=== PATIENT | female | born 1960 | race African-American/Black ===

== ENCOUNTER 2017-04-08 02:27 | Outpatient (CLI) | payer MEDICAID ==
[~2017-04-08 02:27] MED LIST: ATOR10TA87 PO; CARV-50 PO; HYDR-4069 PO; METF500T PO; NIFE90TA37 PO
== END 2017-04-08 23:59 | disposition home or self-care (01) ==
LOC: DIABETIC 02:27
PROVIDERS: ATTEND Family Medicine
DX: E11.22 Type 2 diabetes mellitus with diabetic chronic kidney disease (principal); I13.0 Hypertensive heart and chronic kidney disease with heart failure and stage 1 through stage 4 chronic kidney disease, or unspecified chronic kidney disease; N18.4 Chronic kidney disease, stage 4 (severe); I50.9 Heart failure, unspecified
CPT/HCPCS: G0108

== ENCOUNTER 2019-04-27 11:01 | Day surgery (SDC) | payer MEDICAID ==
[~2019-04-27] VITALS: Ht 167.6 cm; Wt 66.8 kg
[~2019-04-27 11:01] MED LIST changes: -NIFE90TA37 PO; +NIFE90TA61 PO
[2019-04-27 11:31] VITALS: BP 121/89
[2019-04-27] MEDS ORDERED: VALS1TAB76 PO (12:06)
[2019-04-27] MEDS ORDERED: FA/V1TAB PO (12:06)
[2019-04-27] MEDS ORDERED: MULT-955 PO (12:06)
[2019-04-27] MEDS ORDERED: FURO80TA3 PO (12:06)
[2019-04-27] MEDS ORDERED: fentaNYL/PF 50MCG/1 ML 2ML syringe IV PRN (13:35)
[2019-04-27] MEDS ORDERED: heparin 1,000 units/ml 10ml inj ICATH ONE (13:35)
[2019-04-27] MEDS ORDERED: LIDOcaine 1% (10mg/ml) 2ml vial SQ ONE (13:35)
[2019-04-27] MEDS ORDERED: heparin 1,000unit/ml 10ml vial 10 ML ONE (13:41)
[2019-04-27] MEDS ORDERED: fentaNYL/PF 50MCG/1 ML 2ML syringe ONE (13:41)
[2019-04-27] MEDS ORDERED: LIDOcaine 1%/PF 5ML 10 MG/ML VIAL ONE (13:58)
[2019-04-27] MEDS ORDERED: midazolam 2 mg/2 ml injection ONE (14:12)
[2019-04-27 14:42] VITALS: BP 117/85
[2019-04-27 14:57] VITALS: BP 105/84
[2019-04-27 15:12] VITALS: BP 96/69
[2019-04-27 15:27] VITALS: BP 100/74
== END 2019-04-27 16:05 | disposition home or self-care (01) ==
LOC: SSTAY O 11:01
PROVIDERS: ATTEND Radiology Diagnostic Radiology
DX: T82.49XA Other complication of vascular dialysis catheter, initial encounter (principal); Z88.5 Allergy status to narcotic agent; Z88.8 Allergy status to other drugs, medicaments and biological substances; Z79.899 Other long term (current) drug therapy; Y83.8 Other surgical procedures as the cause of abnormal reaction of the patient, or of later complication, without mention of misadventure at the time of the procedure; Y92.89 Other specified places as the place of occurrence of the external cause
CPT/HCPCS: 36581; 77001; 99152; 99153; C1750; C1769; J1644; J2250; J3010; A9270

== ENCOUNTER 2019-05-20 08:59 | Day surgery (SDC) | payer MEDICARE, MEDICAID ==
[~2019-05-20] VITALS: Ht 162.6 cm; Wt 68.2 kg
[~2019-05-20 08:59] MED LIST changes: -ATOR10TA87 PO; -CARV-50 PO; +FA/V1TAB PO; +FURO80TA3 PO; -HYDR-4069 PO; -METF500T PO; +MULT-955 PO; -NIFE90TA61 PO; +VALS1TAB76 PO
[2019-05-20 09:06] VITALS: BP 122/90
[2019-05-20] MEDS ORDERED: fentaNYL/PF 50MCG/1 ML 2ML syringe ONE (09:06)
[2019-05-20] MEDS ORDERED: MIDAZolam 5mg/5ml vial ONE (09:06)
[2019-05-20] MEDS ORDERED: LIDOcaine Viscous 15ml cup ONE (09:06)
[2019-05-20 09:52] VITALS: BP 119/64
[2019-05-20 10:02] VITALS: BP 104/75
[2019-05-20 10:12] VITALS: BP 114/72
[2019-05-20 10:22] VITALS: BP 118/84
== END 2019-05-20 10:35 | disposition home or self-care (01) ==
LOC: GI LAB 08:59
PROVIDERS: ATTEND Internal Medicine Gastroenterology
DX: R11.2 Nausea with vomiting, unspecified (principal); K44.9 Diaphragmatic hernia without obstruction or gangrene; K31.7 Polyp of stomach and duodenum; K29.50 Unspecified chronic gastritis without bleeding; Z90.49 Acquired absence of other specified parts of digestive tract
CPT/HCPCS: 43239; G0500; J2250; J3010; J7040; 99152; A4620

== ENCOUNTER 2020-10-17 05:56 | Day surgery (SDC) | payer MEDICARE, MEDICAID ==
[~2020-10-17] VITALS: Ht 167.6 cm; Wt 71.4 kg
[2020-10-17] MEDS ORDERED: albumin 25% 100mL bottle x 1 IV PRN (06:20)
[2020-10-17 06:22] VITALS: BP 146/94
[2020-10-17] MEDS ORDERED: CARV3.12 PO (06:55)
[2020-10-17] MEDS ORDERED: ALBU18HF2 INH (06:55)
[2020-10-17] MEDS ORDERED: CINA60TA4 (06:55)
[2020-10-17] MEDS ORDERED: [UNRECOGNIZED DRUG - CODE] (06:55)
[2020-10-17] MEDS ORDERED: B COMPLEX FOLIC ACID (06:55)
[2020-10-17] MEDS ORDERED: B COMPLEX (06:55)
[2020-10-17] MEDS ORDERED: OMEG1CAP2 (06:55)
[2020-10-17 08:40] VITALS: BP 144/103
[2020-10-17 08:45] VITALS: BP 149/99
[2020-10-17 09:00] VITALS: BP 140/101
[2020-10-17 09:15] VITALS: BP 141/100
[2020-10-17 09:25] VITALS: BP 133/88
== END 2020-10-17 09:30 | disposition home or self-care (01) ==
LOC: SSTAY O 05:56
PROVIDERS: ATTEND Radiology Vascular & Interventional Radiology
DX: R18.8 Other ascites (principal); R14.0 Abdominal distension (gaseous); K74.60 Unspecified cirrhosis of liver; N18.6 End stage renal disease; Z99.2 Dependence on renal dialysis; Z90.49 Acquired absence of other specified parts of digestive tract; Z79.899 Other long term (current) drug therapy
CPT/HCPCS: 49083

== ENCOUNTER → 2020-11-19 | Emergency (ER) | payer MEDICARE, MEDICAID ==
[~2020-11-19] VITALS: Ht 167.6 cm; Wt 68.2 kg
[~2020-11-19] MED LIST changes: +ALBU18HF2 INH; +B COMPLEX; +B COMPLEX FOLIC ACID; +CARV3.12 PO; +CINA60TA4; -FA/V1TAB PO; -FURO80TA3 PO; -MULT-955 PO; +OMEG1CAP2; -VALS1TAB76 PO; +[UNRECOGNIZED DRUG - CODE]
[2020-11-19 23:22] VITALS: BP 141/86
== END | disposition left against medical advice (07) ==
LOC: ER 23:20
DX: R11.0 Nausea (principal); Z53.21 Procedure and treatment not carried out due to patient leaving prior to being seen by health care provider

== ENCOUNTER 2020-12-15 07:36 | Day surgery (SDC) | payer MEDICARE, MEDICAID ==
[~2020-12-15] VITALS: Ht 167.6 cm; Wt 71.7 kg
[2020-12-15] MEDS ORDERED: CBD PO (08:15)
[2020-12-15] MEDS ORDERED: CBD gummies PO (08:15)
[2020-12-15] MEDS ORDERED: albumin 25% 100mL bottle x 1 IV PRN (08:15)
[2020-12-15 08:31] VITALS: BP 110/74
== END 2020-12-15 10:00 | disposition home or self-care (01) ==
LOC: SSTAY O 07:36
PROVIDERS: ATTEND Radiology Vascular & Interventional Radiology
DX: R18.8 Other ascites (principal); R14.0 Abdominal distension (gaseous); K74.60 Unspecified cirrhosis of liver; N18.6 End stage renal disease; N26.1 Atrophy of kidney (terminal); Z99.2 Dependence on renal dialysis; Z90.49 Acquired absence of other specified parts of digestive tract; Z88.5 Allergy status to narcotic agent; Z88.8 Allergy status to other drugs, medicaments and biological substances; Z79.899 Other long term (current) drug therapy
CPT/HCPCS: 76705

== ENCOUNTER 2021-01-11 10:55 | Inpatient (IN) | payer MEDICARE, MEDICAID ==
[~2021-01-11] VITALS: Ht 167.6 cm; Wt 75.0 kg
[2021-01-11] MEDS: fluconazole 100mg tablet PO SCH (00:04)
[~2021-01-11 10:55] MED LIST changes: -B COMPLEX FOLIC ACID; +CBD PO; +CBD gummies PO; -CINA60TA4
--- NOTE | 2021-01-11 13:30 | NUR ---
PATIENT AGITATED, CONFUSED, STAFF IS UNABLE TO PERFORM LAB DRAW OR CT SCAN. MD AWARE ORDERS RECEIVED.
[2021-01-11] MEDS ORDERED: haloperidol lactate 5mg/ml inj IM ONE ×2 (13:45→16:50)
--- NOTE | 2021-01-11 14:30 | NUR ---
PATIENT NOW CALM, ORDERED PROCEDURES PERFORMED
[2021-01-11 14:58] LABS: BASOPHILS # (AUTO) 0.1 X10'3 (0-0.2); BASOPHILS % (AUTO) 0.8 % (0-1); EOSINOPHILS % (AUTO) 0.6 % (0-6); HEMATOCRIT 32.3 % (35.0-45.0); HEMOGLOBIN 10.5 g/dl (12.0-16.0); LYMPHOCYTES # (AUTO) 0.6 X10'3 (1.1-4.8); LYMPHOCYTES % (AUTO) 8.1 % (21-51); MEAN CORPUSCULAR HGB CONC 32.7 g/dL (33.0-36.5); MEAN CORPUSCULAR VOLUME 95.1 FL (78-98); MEAN PLATELET VOLUME 9.2 FL (7.4-10.4); MONOCYTES # (AUTO) 0.6 X10'3 (0-0.9); MONOCYTES % (AUTO) 8.4 % (2-12); NEUTROPHILS # (AUTO) 6.3 X10'3 (1.8-7.7); NEUTROPHILS % (AUTO) 82.1 % (42-75); PLATELET COUNT 248 X10'3 (140-440); RED CELL DISTRIBUTION WIDTH 20.7 % (11.5-14.5); WHITE BLOOD COUNT 7.7 X10'3 (4.5-11.0)
[2021-01-11 15:07] LABS: PARTIAL THROMBOPLASTIN TIME 30 SECONDS (22-32)
[2021-01-11 15:21] LABS: ANISOCYTOSIS 3+; PLATELET ESTIMATE NORMAL; SCHISTOCYTES FEW; TARGET CELLS FEW
[2021-01-11 15:22] LABS: LARGE PLATELETS FEW
[2021-01-11 15:36] LABS: ALANINE AMINOTRANSFERASE 12 U/L (12-78); ALBUMIN 2.7 G/DL (3.4-5.0); ALBUMIN/GLOBULIN RATIO 0.5 (1.1-1.5); ANION GAP 13 (8-16); ASPARTATE AMINO TRANSFERASE 20 U/L (10-37); BILIRUBIN,DIRECT 0.5 MG/DL (0-0.3); BILIRUBIN,TOTAL 1.1 MG/DL (0.1-1.0); BLOOD UREA NITROGEN 36 MG/DL (7-18); BUN/CREATININE RATIO 5.3 (6.6-38.0); CALCIUM 9.2 MG/DL (8.5-10.1); CHLORIDE 101 MMOL/L (99-107); CREATININE 6.77 MG/DL (0.40-0.90); GLUCOSE 61 MG/DL (70-104); LIPASE < 50 U/L (73-393); POTASSIUM 4.2 MMOL/L (3.5-5.1); SODIUM 140 MMOL/L (135-145); TOTAL PROTEIN 8.7 G/DL (6.4-8.2); eGFR 8 ML/MIN
--- NOTE | 2021-01-11 16:30 | NUR ---
PATIENT AGITATED AND STRUCK MYSELF AND OTHER NURSING STAFF WHILE CLEANING STOOL. PATIENT ALSO SPITTING RANDOMLY AND REFUSES TO KEEP MASK ON. DR CHAUHAN, ORDERS RECEIVED.
[2021-01-11 16:38] LABS: ALKALINE PHOSPHATASE 108 IU/L (46-116)
[2021-01-11] MEDS ORDERED: potassium Cl 20 mEq SR tablet PO PRN ×2 (16:50)
[2021-01-11] MEDS ORDERED: PERFLUTREN PROTEIN-A MICROSPHR (Optison) 0.22 MG/ML 3ML VIAL IV PRN (16:50)
[2021-01-11] MEDS ORDERED: acetaminophen 325mg tablet PO PRN ×2 (16:50)
[2021-01-11] MEDS ORDERED: OMEP-50 PO (16:50)
[2021-01-11] MEDS ORDERED: diphenhydrAMINE 25mg capsule PO PRN (16:50)
[2021-01-11] MEDS ORDERED: ALPR-149 PO (16:50)
[2021-01-11] MEDS ORDERED: potassium Cl 40MEQ/1/2NS 520ml 520 ML IV PRN ×2 (16:50)
[2021-01-11] MEDS ORDERED: KETO15CR2 TOP (16:50)
[2021-01-11] MEDS ORDERED: mag hydrox/Alum hydrox/simeth 30ml oral suspension PO PRN (16:50)
[2021-01-11] MEDS ORDERED: magnesium 4gm in 100ml NS 100 ML IV PRN (16:50)
[2021-01-11] MEDS ORDERED: acetaminophen 650mg rectal suppository RC PRN (16:50)
[2021-01-11] MEDS ORDERED: magnesium Cl slow-release 64mg tablet PO PRN (16:50)
[2021-01-11] MEDS ORDERED: magnesium 2GM in 50ml NS 50 ML IV PRN (16:50)
[2021-01-11] MEDS ORDERED: FLUC200T9 PO (16:50)
[2021-01-11] MEDS ORDERED: ONDA4TAB12 SL (16:50)
[2021-01-11] MEDS ORDERED: magnesium hydroxide 30ml (MOM) UD suspension PO PRN (16:50)
[2021-01-11] MEDS ORDERED: bisacodyl 10mg suppository rectal RC PRN (16:50)
[2021-01-11] MEDS ORDERED: QUET25TA36 PO (16:50)
[2021-01-11] MEDS ORDERED: ALBU18HF2 INH (16:56)
[2021-01-11] MEDS ORDERED: CARV3.12 PO (16:56)
[2021-01-11] MEDS ORDERED: albuterol 2.5 MG/3 ML nebule NEB PRN (17:05)
[2021-01-11] MEDS ORDERED: ondansetron 4mg rapidly disintigrating tab PO PRN (17:05)
--- NOTE | 2021-01-11 17:37 | NUR ---
Franc magaña in ED - 01/11/21 at 1742 by TUAN PATIENT AGITATED, CONFUSED, STAFF IS UNABLE TO PERFORM LAB DRAW OR CT SCAN. AWARE ORDERS RECEIVED.
[2021-01-11 17:55] LABS: CHOLESTEROL 136 MG/DL (0-200); HDL CHOLESTEROL 46 MG/DL (35-60); LDL CHOLESTEROL 76 MG/DL (50-100); TRIGLYCERIDES 79 MG/DL (20-135)
[2021-01-11 18:05] LABS: HEMOGLOBIN A1C 4.5 % (4.5-6.2)
[2021-01-11] MEDS: K and/or MAG REPLACEMENT MC SCH (20:00)
[2021-01-11] MEDS: docusate sod 100mg capsule PO SCH (20:00)
[2021-01-12] VITALS (8 sets, daily range): BP systolic 113–152; BP diastolic 77–100
[2021-01-12] MEDS: carVEDilol 3.125mg tablet PO SCH ×3 (00:04→20:34)
[2021-01-12] MEDS: pantoprazole 40mg Tablet.DR PO SCH ×3 (00:04→20:34)
[2021-01-12] MEDS: QUEtiapine 25mg tablet PO SCH ×2 (00:04→21:00)
[2021-01-12] MEDS: ketoconazole 2% cream 15gm TP SCH ×3 (00:04→20:00)
[2021-01-12] MEDS: normal saline 1000ml 1,000 ML IV SCH ×4 (00:05→22:35)
[2021-01-12] MEDS: heparin, porcine 5000 units/ml vial SQ SCH ×3 (00:08→20:35)
--- NOTE | 2021-01-12 02:49 | NUR ---
Alert and responsive, very disoriented newly admitted patient. Patient admitted for altered mental status. Patient on admission to the floor was confused, agitated, and combative, and with spitting episodes at times. Patient refused all night medications, and is unable to be redirected. Patient has ESRD, and on hemodialysis, with dialysis cath to right subclavian. Patient maintained on bilateral soft wrist restraints; assessed q two hours for circulation. Patient is presently asleep.
[2021-01-12] MEDS ORDERED: haloperidol lactate 5mg/ml inj IM ONE (03:10)
[2021-01-12 06:34] LABS: BASOPHILS % (AUTO) 0.6 % (0-1); EOSINOPHILS % (AUTO) 0.3 % (0-6); HEMATOCRIT 28.1 % (35.0-45.0); HEMOGLOBIN 9.2 g/dl (12.0-16.0); LYMPHOCYTES # (AUTO) 0.4 X10'3 (1.1-4.8); LYMPHOCYTES % (AUTO) 5.8 % (21-51); MEAN CORPUSCULAR HEMOGLOBIN 31.2 PG (27.0-31.0); MEAN CORPUSCULAR HGB CONC 32.6 g/dL (33.0-36.5); MEAN CORPUSCULAR VOLUME 95.6 FL (78-98); MEAN PLATELET VOLUME 9.5 FL (7.4-10.4); MONOCYTES # (AUTO) 0.5 X10'3 (0-0.9); MONOCYTES % (AUTO) 8.5 % (2-12); NEUTROPHILS # (AUTO) 5.4 X10'3 (1.8-7.7); NEUTROPHILS % (AUTO) 84.8 % (42-75); PLATELET COUNT 203 X10'3 (140-440); RED BLOOD COUNT 2.94 X10'6 (4.20-5.60); RED CELL DISTRIBUTION WIDTH 21.5 % (11.5-14.5); WHITE BLOOD COUNT 6.4 X10'3 (4.5-11.0)
[2021-01-12 07:11] LABS: ALANINE AMINOTRANSFERASE 11 U/L (12-78); ALBUMIN 2.2 G/DL (3.4-5.0); ALBUMIN/GLOBULIN RATIO 0.4 (1.1-1.5); ALKALINE PHOSPHATASE 91 IU/L (46-116); ANION GAP 17 (8-16); ASPARTATE AMINO TRANSFERASE 16 U/L (10-37); BLOOD UREA NITROGEN 41 MG/DL (7-18); BUN/CREATININE RATIO 5.7 (6.6-38.0); CALCIUM 8.6 MG/DL (8.5-10.1); CHLORIDE 104 MMOL/L (99-107); CREATININE 7.22 MG/DL (0.40-0.90); POTASSIUM 4.2 MMOL/L (3.5-5.1); SODIUM 142 MMOL/L (135-145); TOTAL CARBON DIOXIDE 20.9 MMOL/L (24-32); TOTAL PROTEIN 7.3 G/DL (6.4-8.2); eGFR 7 ML/MIN
[2021-01-12 07:12] LABS: CHOLESTEROL 111 MG/DL (0-200); HDL CHOLESTEROL 37 MG/DL (35-60); LDL CHOLESTEROL 62 MG/DL (50-100); MAGNESIUM 2.4 MG/DL (1.5-2.4); PHOSPHORUS 6.6 MG/DL (2.3-4.5); TRIGLYCERIDES 67 MG/DL (20-135)
[2021-01-12 07:17] LABS: GLUCOSE 50 MG/DL (70-104)
[2021-01-12 07:25] LABS: ANISOCYTOSIS 3+; LARGE PLATELETS FEW; PLATELET ESTIMATE NORMAL; SCHISTOCYTES FEW
[2021-01-12 07:26] LABS: POLYCHROMASIA 1+; TARGET CELLS FEW
[2021-01-12] MEDS ORDERED: heparin 1,000 units/ml 10ml inj IV ONE (07:45)
[2021-01-12] MEDS ORDERED: heparin 1,000unit/ml 10ml vial 10 ML IV ONE (07:45)
[2021-01-12] MEDS ORDERED: albumin (human) 25% 100ml IV 100 ML IV PRN (07:45)
[2021-01-12] MEDS ORDERED: EPOETIN ALFA-EPBX 20,000 UNIT/ML 1 ML MDV IV ONE (07:45)
[2021-01-12] MEDS ORDERED: heparin 1,000 units/ml 10ml inj HE ONE ×2 (07:50)
[2021-01-12] MEDS: K and/or MAG REPLACEMENT MC SCH ×2 (08:00→20:00)
--- NOTE | 2021-01-12 08:07 | NUR ---
Dr. Meyer was paged about the patient low blood sugar level , patient 14B PCU glucose level is 50 blood sugar accu check is 44. lupe NEFF [phone]
--- NOTE | 2021-01-12 08:28 | NUR ---
Dr. Meyer was paged again about the patient low sugar and recommendation treatment can patient ADAM MARIE, room 14 B in PCU have an IV dextrose order, her blood sugar is 44 . INDERJIT NEFF [phone]
[2021-01-12] MEDS ORDERED: dextrose 50%-water 50ml dispensing syringe IV ONE (08:30)
[2021-01-12] MEDS: levoTHYROXINE 25mcg tablet PO SCH (11:48)
[2021-01-12] MEDS: aspirin 81mg, enteric-coated 1 TAB TABLET.DR PO SCH (11:48)
[2021-01-12] MEDS: docusate sod 100mg capsule PO SCH ×2 (11:48→20:34)
[2021-01-12] MEDS: atorvastatin 10mg tablet PO SCH (11:49)
[2021-01-12] MEDS: fluconazole 100mg tablet PO SCH (12:04)
[2021-01-12] MEDS: dextrose 5%-normal saline 1,000 ML IV SCH (23:10)
[2021-01-12] MEDS: ALPRAZolam 0.25mg tablet PO PRN (23:49)
[2021-01-13 06:00] VITALS: BP 114/75
[2021-01-13 06:03] LABS: ALANINE AMINOTRANSFERASE 8 U/L (12-78); ALBUMIN 2.2 G/DL (3.4-5.0); ALBUMIN/GLOBULIN RATIO 0.4 (1.1-1.5); ALKALINE PHOSPHATASE 96 IU/L (46-116); ANION GAP 12 (8-16); ASPARTATE AMINO TRANSFERASE 17 U/L (10-37); BILIRUBIN,TOTAL 1.1 MG/DL (0.1-1.0); BLOOD UREA NITROGEN 22 MG/DL (7-18); BUN/CREATININE RATIO 4.6 (6.6-38.0); CALCIUM 8.6 MG/DL (8.5-10.1); CHLORIDE 101 MMOL/L (99-107); CREATININE 4.77 MG/DL (0.40-0.90); GLUCOSE 53 MG/DL (70-104); MAGNESIUM 2.4 MG/DL (1.5-2.4); PHOSPHORUS 5.1 MG/DL (2.3-4.5); SODIUM 138 MMOL/L (135-145); TOTAL CARBON DIOXIDE 25.4 MMOL/L (24-32); TOTAL PROTEIN 7.5 G/DL (6.4-8.2); eGFR 11 ML/MIN
[2021-01-13 06:17] LABS: BASOPHILS % (AUTO) 0.9 % (0-1); EOSINOPHILS % (AUTO) 0.9 % (0-6); HEMATOCRIT 30.1 % (35.0-45.0); HEMOGLOBIN 9.8 g/dl (12.0-16.0); LYMPHOCYTES # (AUTO) 0.5 X10'3 (1.1-4.8); LYMPHOCYTES % (AUTO) 10.5 % (21-51); MEAN CORPUSCULAR HEMOGLOBIN 31.4 PG (27.0-31.0); MEAN CORPUSCULAR HGB CONC 32.6 g/dL (33.0-36.5); MEAN CORPUSCULAR VOLUME 96.4 FL (78-98); MEAN PLATELET VOLUME 9.2 FL (7.4-10.4); MONOCYTES # (AUTO) 0.4 X10'3 (0-0.9); MONOCYTES % (AUTO) 7.9 % (2-12); NEUTROPHILS # (AUTO) 3.8 X10'3 (1.8-7.7); NEUTROPHILS % (AUTO) 79.8 % (42-75); PLATELET COUNT 209 X10'3 (140-440); RED BLOOD COUNT 3.12 X10'6 (4.20-5.60); WHITE BLOOD COUNT 4.7 X10'3 (4.5-11.0)
[2021-01-13] MEDS: levoTHYROXINE 25mcg tablet PO SCH (07:56)
[2021-01-13] MEDS: fluconazole 100mg tablet PO SCH (07:57)
[2021-01-13] MEDS: carVEDilol 3.125mg tablet PO SCH ×2 (07:57→20:09)
[2021-01-13] MEDS: aspirin 81mg, enteric-coated 1 TAB TABLET.DR PO SCH (07:57)
[2021-01-13] MEDS: docusate sod 100mg capsule PO SCH ×2 (07:57→20:00)
[2021-01-13] MEDS: heparin, porcine 5000 units/ml vial SQ SCH ×2 (07:57→20:13)
[2021-01-13] MEDS: atorvastatin 10mg tablet PO SCH (07:57)
[2021-01-13] MEDS: pantoprazole 40mg Tablet.DR PO SCH ×2 (07:57→20:10)
[2021-01-13] MEDS: ketoconazole 2% cream 15gm TP SCH ×2 (07:57→20:00)
[2021-01-13] MEDS: K and/or MAG REPLACEMENT MC SCH ×2 (08:00→20:00)
[2021-01-13 11:00] VITALS: BP 112/79
[2021-01-13 11:48] LABS: ANISOCYTOSIS 3+; PLATELET ESTIMATE NORMAL
[2021-01-13 11:49] LABS: BURR CELLS FEW; POLYCHROMASIA FEW; SCHISTOCYTES FEW
[2021-01-13 11:50] LABS: LARGE PLATELETS FEW; TARGET CELLS FEW
--- NOTE | 2021-01-13 14:44 | NUR ---
Paged Dr. MURILLO patient in PCU room 14 B , has not pass urine for two days, i believe she is anuric, lupe NEFF [phone]
[2021-01-13 15:00] VITALS: BP 119/80
[2021-01-13 19:00] VITALS: BP 113/76
[2021-01-13 19:04] LABS: CLARITY,URINE CLOUDY (Clear); COLOR,URINE YELLOW (Yellow)
[2021-01-13 19:06] LABS: GLUCOSE, URINE NEGATIVE (Neg); KETONES,URINE NEGATIVE (Neg); NITRITES, URINE NEGATIVE (Neg); OCCULT BLOOD,URINE NEGATIVE (Neg); PROTEIN,URINE 300 mg/dl (Neg); UROBILINOGEN,URINE 0.2 E.U/dL (0.2-1.0)
[2021-01-13 19:07] LABS: LEUKOCYTE ESTERASE ,URINE NEGATIVE (Neg)
[2021-01-13 19:08] LABS: URINE AMPHETAMINE SCREEN NEGATIVE (Neg); URINE BARBITUATE SCREEN NEGATIVE (Neg); URINE BENZODIAZEPINES SCREEN NEGATIVE (Neg); URINE CANNABINOID SCREEN POSITIVE (Neg); URINE COCAINE SCREEN NEGATIVE (Neg); URINE METHADONE SCREEN NEGATIVE (Neg); URINE OPIATE SCREEN NEGATIVE (Neg); URINE PHENCYCLIDINE SCREEN NEGATIVE (Neg)
[2021-01-13 19:18] LABS: BACTERIA,URINE 2+ /HPF (Neg); MUCUS STRANDS NONE SEEN /LPF (Neg); RBC,URINE NONE SEEN /HPF (0-2); SQUAMOUS EPITHELIAL CELL,UR MANY /LPF (FEW); YEAST MODERATE /HPF (NEGATIVE)
[2021-01-13] MEDS: dextrose 5%-normal saline 1,000 ML IV SCH (19:26)
[2021-01-13] MEDS: traZODone 50mg tablet PO SCH (20:11)
[2021-01-13] MEDS: risperiDONE 0.5mg tablet PO SCH (20:11)
[2021-01-13 22:00] VITALS: BP 113/76
[2021-01-13] MEDS: ALPRAZolam 0.25mg tablet PO PRN (23:27)
[2021-01-14] MEDS: dextrose 5%-normal saline 1,000 ML IV SCH ×2 (01:47→07:01)
--- NOTE | 2021-01-14 03:58 | NUR ---
reviewed and edited assessment from SRN.
[2021-01-14 06:00] VITALS: BP 114/77
--- NOTE | 2021-01-14 06:00 | NUR ---
Patient in room PCU 3014. I have received report from Shira NEFF and had the opportunity to ask questions and assume patient care.
[2021-01-14 06:15] LABS: BASOPHILS # (AUTO) 0.1 X10'3 (0-0.2); BASOPHILS % (AUTO) 1.5 % (0-1); EOSINOPHILS # (AUTO) 0.1 X10'3 (0-0.9); HEMATOCRIT 29.6 % (35.0-45.0); HEMOGLOBIN 9.8 g/dl (12.0-16.0); LYMPHOCYTES # (AUTO) 0.5 X10'3 (1.1-4.8); LYMPHOCYTES % (AUTO) 11.8 % (21-51); MEAN CORPUSCULAR HEMOGLOBIN 31.5 PG (27.0-31.0); MEAN CORPUSCULAR HGB CONC 33.1 g/dL (33.0-36.5); MEAN PLATELET VOLUME 9.2 FL (7.4-10.4); MONOCYTES # (AUTO) 0.5 X10'3 (0-0.9); MONOCYTES % (AUTO) 10.3 % (2-12); NEUTROPHILS # (AUTO) 3.3 X10'3 (1.8-7.7); NEUTROPHILS % (AUTO) 73.4 % (42-75); PLATELET COUNT 221 X10'3 (140-440); RED BLOOD COUNT 3.11 X10'6 (4.20-5.60); RED CELL DISTRIBUTION WIDTH 21.3 % (11.5-14.5); WHITE BLOOD COUNT 4.5 X10'3 (4.5-11.0)
[2021-01-14 06:23] LABS: ALANINE AMINOTRANSFERASE 6 U/L (12-78); ALBUMIN 2.2 G/DL (3.4-5.0); ALBUMIN/GLOBULIN RATIO 0.4 (1.1-1.5); ALKALINE PHOSPHATASE 91 IU/L (46-116); ANION GAP 10 (8-16); ASPARTATE AMINO TRANSFERASE 15 U/L (10-37); BILIRUBIN,TOTAL 0.9 MG/DL (0.1-1.0); BLOOD UREA NITROGEN 26 MG/DL (7-18); BUN/CREATININE RATIO 4.4 (6.6-38.0); CALCIUM 8.4 MG/DL (8.5-10.1); CHLORIDE 99 MMOL/L (99-107); CREATININE 5.85 MG/DL (0.40-0.90); MAGNESIUM 2.3 MG/DL (1.5-2.4); PHOSPHORUS 5.6 MG/DL (2.3-4.5); POTASSIUM 4.4 MMOL/L (3.5-5.1); SODIUM 133 MMOL/L (135-145); TOTAL CARBON DIOXIDE 24.5 MMOL/L (24-32); TOTAL PROTEIN 7.8 G/DL (6.4-8.2); eGFR 9 ML/MIN
[2021-01-14 06:29] LABS: GLUCOSE 44 MG/DL (70-104)
--- NOTE | 2021-01-14 06:35 | NUR ---
Called Dr. Madsen re blood glucose of 44
[2021-01-14] MEDS: K and/or MAG REPLACEMENT MC SCH ×2 (08:00→20:00)
[2021-01-14] MEDS ORDERED: dextrose ORAL solution 15 GM/59 ML bottle PO ONE (08:15)
[2021-01-14] MEDS: docusate sod 100mg capsule PO SCH ×2 (08:17→20:00)
[2021-01-14] MEDS: aspirin 81mg, enteric-coated 1 TAB TABLET.DR PO SCH (08:17)
[2021-01-14] MEDS: carVEDilol 3.125mg tablet PO SCH ×2 (08:17→20:26)
[2021-01-14] MEDS: atorvastatin 10mg tablet PO SCH (08:17)
[2021-01-14] MEDS: risperiDONE 0.5mg tablet PO SCH ×2 (08:18→20:26)
[2021-01-14] MEDS: pantoprazole 40mg Tablet.DR PO SCH ×2 (08:18→20:26)
[2021-01-14] MEDS: levoTHYROXINE 25mcg tablet PO SCH (08:18)
[2021-01-14] MEDS: fluconazole 100mg tablet PO SCH (08:19)
[2021-01-14] MEDS: ketoconazole 2% cream 15gm TP SCH ×2 (08:20→20:00)
[2021-01-14] MEDS: heparin, porcine 5000 units/ml vial SQ SCH ×2 (08:20→20:27)
[2021-01-14 11:00] VITALS: BP 124/80
[2021-01-14] MEDS: CefTRIAXone/D5W-Rocephin 1gm 50 ML IV SCH (12:05)
[2021-01-14 15:00] VITALS: BP 117/82
[2021-01-14 17:55] LABS: UA COLLECTION TYPE STRAIGHT CATH
[2021-01-14 18:00] VITALS: BP 117/83
--- NOTE | 2021-01-14 18:14 | NUR ---
Problems reprioritized. Patient report given, questions answered & plan of care reviewed with Shira NEFF.
[2021-01-14] MEDS: traZODone 50mg tablet PO SCH (20:26)
[2021-01-14 22:00] VITALS: BP 118/92
[2021-01-15 02:00] VITALS: BP 114/83
--- NOTE | 2021-01-15 04:31 | NUR ---
reviewed and agree with SRN assessment findings
[2021-01-15 06:00] VITALS: BP 112/80
[2021-01-15 06:30] LABS: BASOPHILS % (AUTO) 0.7 % (0-1); EOSINOPHILS # (AUTO) 0.1 X10'3 (0-0.9); EOSINOPHILS % (AUTO) 2.1 % (0-6); HEMATOCRIT 29.3 % (35.0-45.0); HEMOGLOBIN 9.7 g/dl (12.0-16.0); LYMPHOCYTES # (AUTO) 0.5 X10'3 (1.1-4.8); LYMPHOCYTES % (AUTO) 7.8 % (21-51); MEAN CORPUSCULAR HEMOGLOBIN 31.6 PG (27.0-31.0); MEAN CORPUSCULAR HGB CONC 33.2 g/dL (33.0-36.5); MEAN CORPUSCULAR VOLUME 95.4 FL (78-98); MEAN PLATELET VOLUME 9.1 FL (7.4-10.4); MONOCYTES # (AUTO) 0.6 X10'3 (0-0.9); MONOCYTES % (AUTO) 8.4 % (2-12); NEUTROPHILS # (AUTO) 5.4 X10'3 (1.8-7.7); PLATELET COUNT 216 X10'3 (140-440); RED BLOOD COUNT 3.07 X10'6 (4.20-5.60); WHITE BLOOD COUNT 6.7 X10'3 (4.5-11.0)
--- NOTE | 2021-01-15 06:33 | NUR ---
Patient in room PCU 3014. I have received report from Shira NEFF and had the opportunity to ask questions and assume patient care.
[2021-01-15 07:21] LABS: ALANINE AMINOTRANSFERASE 9 U/L (12-78); ALBUMIN 2.3 G/DL (3.4-5.0); ALBUMIN/GLOBULIN RATIO 0.4 (1.1-1.5); ALKALINE PHOSPHATASE 95 IU/L (46-116); ANION GAP 14 (8-16); ASPARTATE AMINO TRANSFERASE 14 U/L (10-37); BILIRUBIN,TOTAL 0.7 MG/DL (0.1-1.0); BLOOD UREA NITROGEN 34 MG/DL (7-18); BUN/CREATININE RATIO 5.1 (6.6-38.0); CALCIUM 8.4 MG/DL (8.5-10.1); CHLORIDE 101 MMOL/L (99-107); CREATININE 6.62 MG/DL (0.40-0.90); GLUCOSE 125 MG/DL (70-104); MAGNESIUM 2.4 MG/DL (1.5-2.4); PHOSPHORUS 6.2 MG/DL (2.3-4.5); POTASSIUM 4.6 MMOL/L (3.5-5.1); SODIUM 138 MMOL/L (135-145); TOTAL CARBON DIOXIDE 22.9 MMOL/L (24-32); TOTAL PROTEIN 7.5 G/DL (6.4-8.2); eGFR 8 ML/MIN
[2021-01-15] MEDS: K and/or MAG REPLACEMENT MC SCH ×2 (08:00→19:12)
[2021-01-15] MEDS: ketoconazole 2% cream 15gm TP SCH ×2 (08:00→20:00)
[2021-01-15] MEDS: CefTRIAXone/D5W-Rocephin 1gm 50 ML IV SCH (08:34)
[2021-01-15] MEDS: levoTHYROXINE 25mcg tablet PO SCH (08:34)
[2021-01-15] MEDS: atorvastatin 10mg tablet PO SCH (08:35)
[2021-01-15] MEDS: aspirin 81mg, enteric-coated 1 TAB TABLET.DR PO SCH (08:35)
[2021-01-15] MEDS: risperiDONE 0.5mg tablet PO SCH ×2 (08:35→20:06)
[2021-01-15] MEDS: docusate sod 100mg capsule PO SCH ×2 (08:36→20:08)
[2021-01-15] MEDS: pantoprazole 40mg Tablet.DR PO SCH ×2 (08:36→20:05)
[2021-01-15] MEDS: carVEDilol 3.125mg tablet PO SCH ×2 (08:36→20:06)
[2021-01-15] MEDS: fluconazole 100mg tablet PO SCH (08:37)
[2021-01-15] MEDS: heparin, porcine 5000 units/ml vial SQ SCH ×2 (08:37→20:00)
[2021-01-15] MEDS ORDERED: EPOETIN ALFA-EPBX 20,000 UNIT/ML 1 ML MDV IV ONE (08:45)
[2021-01-15] MEDS ORDERED: heparin 1,000unit/ml 10ml vial 10 ML IV ONE (08:45)
[2021-01-15] MEDS ORDERED: albumin (human) 25% 100ml IV 100 ML IV PRN (08:45)
[2021-01-15] MEDS ORDERED: heparin 1,000 units/ml 10ml inj HE ONE ×2 (08:50)
[2021-01-15] MEDS: dextrose 5%-normal saline 1,000 ML IV SCH (09:56)
[2021-01-15 11:00] VITALS: BP 118/79
[2021-01-15 15:00] VITALS: BP 120/78
--- NOTE | 2021-01-15 17:42 | NUR ---
Refaxed MRI screening form and called MRI trailer to inquire about MRI status. No response.
[2021-01-15 18:00] VITALS: BP 118/78
--- NOTE | 2021-01-15 18:30 | NUR ---
Patient in room PCU 3021S. I have received report from Leidy and had the opportunity to ask questions and assume patient care.
--- NOTE | 2021-01-15 18:33 | NUR ---
Problems reprioritized. Patient report given, questions answered & plan of care reviewed with Karen NEFF.
[2021-01-15] MEDS: traZODone 50mg tablet PO SCH (20:16)
[2021-01-15 22:00] VITALS: BP 107/64
--- NOTE | 2021-01-15 22:16 | NUR ---
Notified PAGER ID: [phone] MESSAGE: [id number] Raulito Dial: pt wants to leave AMA. refused trazodone and heparin SQ. she doesn't seem with it however said that her son or will pick her up. Karen [phone]
[2021-01-16 02:00] VITALS: BP 114/75
--- NOTE | 2021-01-16 02:00 | NUR ---
Pt refused IVF and blood glucose monitoring @ 0200. Educated pt however does not want to comply.
[2021-01-16] MEDS: dextrose 5%-normal saline 1,000 ML IV SCH (02:36)
--- NOTE | 2021-01-16 05:47 | NUR ---
Pt refused AM draw.
--- NOTE | 2021-01-16 06:16 | NUR ---
Problems reprioritized. Patient report given, questions answered & plan of care reviewed with Leidy.
--- NOTE | 2021-01-16 06:26 | NUR ---
Patient in room PCU 3023. I have received report from Karen NEFF and had the opportunity to ask questions and assume patient care.
--- NOTE | 2021-01-16 06:57 | NUR ---
patient refusing AM vitals
[2021-01-16] MEDS: levoTHYROXINE 25mcg tablet PO SCH (07:00)
--- NOTE | 2021-01-16 07:48 | NUR ---
Paged MRI and EEG. Received call back from [employer], she states it will be done today. Awaiting call back from MRI.
[2021-01-16] MEDS: docusate sod 100mg capsule PO SCH (08:00)
[2021-01-16] MEDS: K and/or MAG REPLACEMENT MC SCH (08:00)
[2021-01-16] MEDS: carVEDilol 3.125mg tablet PO SCH (08:00)
[2021-01-16] MEDS: fluconazole 100mg tablet PO SCH (08:00)
[2021-01-16] MEDS: pantoprazole 40mg Tablet.DR PO SCH (08:00)
[2021-01-16] MEDS: ketoconazole 2% cream 15gm TP SCH (08:00)
[2021-01-16] MEDS: atorvastatin 10mg tablet PO SCH (08:00)
[2021-01-16] MEDS: aspirin 81mg, enteric-coated 1 TAB TABLET.DR PO SCH (08:00)
[2021-01-16] MEDS: heparin, porcine 5000 units/ml vial SQ SCH (08:00)
[2021-01-16] MEDS: risperiDONE 0.5mg tablet PO SCH (08:00)
[2021-01-16] MEDS: CefTRIAXone/D5W-Rocephin 1gm 50 ML IV SCH (08:07)
--- NOTE | 2021-01-16 08:20 | NUR ---
patient uncooperative, will not take AM medications.
[2021-01-16 09:32] LABS: BASOPHILS % (AUTO) 0.8 % (0-1); EOSINOPHILS # (AUTO) 0.2 X10'3 (0-0.9); EOSINOPHILS % (AUTO) 3.8 % (0-6); HEMATOCRIT 31.5 % (35.0-45.0); HEMOGLOBIN 10.2 g/dl (12.0-16.0); LYMPHOCYTES # (AUTO) 0.6 X10'3 (1.1-4.8); LYMPHOCYTES % (AUTO) 13.9 % (21-51); MEAN CORPUSCULAR HEMOGLOBIN 31.1 PG (27.0-31.0); MEAN CORPUSCULAR HGB CONC 32.3 g/dL (33.0-36.5); MEAN CORPUSCULAR VOLUME 96.3 FL (78-98); MEAN PLATELET VOLUME 9.6 FL (7.4-10.4); MONOCYTES # (AUTO) 0.4 X10'3 (0-0.9); MONOCYTES % (AUTO) 10.1 % (2-12); NEUTROPHILS % (AUTO) 71.4 % (42-75); PLATELET COUNT 217 X10'3 (140-440); RED BLOOD COUNT 3.27 X10'6 (4.20-5.60); RED CELL DISTRIBUTION WIDTH 21.5 % (11.5-14.5); WHITE BLOOD COUNT 4.3 X10'3 (4.5-11.0)
[2021-01-16 09:48] LABS: ALANINE AMINOTRANSFERASE 9 U/L (12-78); ALBUMIN 2.3 G/DL (3.4-5.0); ALBUMIN/GLOBULIN RATIO 0.4 (1.1-1.5); ALKALINE PHOSPHATASE 97 IU/L (46-116); ANION GAP 7 (8-16); ASPARTATE AMINO TRANSFERASE 15 U/L (10-37); BILIRUBIN,TOTAL 0.8 MG/DL (0.1-1.0); BLOOD UREA NITROGEN 21 MG/DL (7-18); BUN/CREATININE RATIO 4.4 (6.6-38.0); CALCIUM 8.5 MG/DL (8.5-10.1); CHLORIDE 100 MMOL/L (99-107); CREATININE 4.74 MG/DL (0.40-0.90); GLUCOSE 71 MG/DL (70-104); MAGNESIUM 2.2 MG/DL (1.5-2.4); PHOSPHORUS 4.6 MG/DL (2.3-4.5); POTASSIUM 4.5 MMOL/L (3.5-5.1); SODIUM 135 MMOL/L (135-145); TOTAL CARBON DIOXIDE 27.9 MMOL/L (24-32); TOTAL PROTEIN 8.1 G/DL (6.4-8.2); eGFR 11 ML/MIN
[2021-01-16 11:00] VITALS: BP 131/95
--- NOTE | 2021-01-16 13:40 | NUR ---
PAGER ID: [phone] MESSAGE: Patient Jayro Cabezas is awaiting a telepsych and is extremely agitated threatening to AMA. Please advise. Thanks Leidy ext [phone]
--- NOTE | 2021-01-16 13:57 | NUR ---
Called telepsych to inquire about estimated time of evaluation. Was advised that there is such a high demand that she will not be evaluated until tomorrow. Called Dr. Berry to advise him that the eval will not happen until tomorrow and that the patient is threatening to leave against medical advise.
--- NOTE | 2021-01-16 14:02 | NUR ---
PAGER ID: [phone] MESSAGE: Called teelpsych to inquire where the patient is in the que and was advised that due to high demand, the eval will not be until tomorrow. Patient is threatening to AMA. Please advise Leidy ext [phone]
--- NOTE | 2021-01-16 14:28 | NUR ---
Initial: Pt brought in by family for AMS per EMR. Pt has been on dialysis and received last treatment 01/15 w/ 2.5L out though no scaled wt this admit. Pt currently confused A&O x 3 per physical assessment. Pt w/ variable PO intake, avg 43% x 10 meals on Heart Healthy diet not meeting needs. Pt may benefit from Nepro shake to help meet increased protein needs while on dialysis. LBM 01/15. Pt noted to be refusing most care and meds. Will continue to monitor. Recs: 1. Continue Heart Healthy diet as tolerated 2. Nepro BIDBD 3. Bowel care per rx 4. Scaled wts w/ dialysis Addendum: 01/16/21 at [address] Amended: Links added.
--- NOTE | 2021-01-16 15:09 | NUR ---
Spoke with Dr. Guzmán regarding Dr Meyer's request that I cancel the telepsych order. Per Dr Guzmán, do not cancel the telepsych.
[2021-01-16] MEDS ORDERED: TRAZ-251 PO (16:05)
[2021-01-16] MEDS ORDERED: ASPI-1071 PO (16:05)
[2021-01-16] MEDS ORDERED: RISP0.5T65 PO (16:05)
[2021-01-16] MEDS ORDERED: LEVO25TA7 PO (16:05)
--- NOTE | 2021-01-16 16:22 | NUR ---
patient noncompliant. refused 1500 vitals
--- NOTE | 2021-01-16 17:34 | NUR ---
Patient stable for discharge per Dr. Meyer. PIV DC'd with cannula intact, Tele DC'd. Patient and family verbalized understanding of discharge instructions, new medication regimen as well as the importance of followup care. Patient and belongins were escorted to the parking lot by a patient patient care technician for transport home.
== END 2021-01-16 17:29 | disposition home or self-care (01) | DRG 441 ==
LOC: ER 10:55 → ED HOLD 17:04 → PCU 3S 23:10
PROVIDERS: ADMIT Family Medicine; ATTEND Family Medicine
PROC: 5A1D70Z Performance of Urinary Filtration, Intermittent, Less than 6 Hours Per Day (ICD-10-PCS; 2021-01-12)
PROC: 5A1D70Z Performance of Urinary Filtration, Intermittent, Less than 6 Hours Per Day (ICD-10-PCS; 2021-01-15)
PROC: 4A10X4Z Monitoring of Central Nervous Electrical Activity, External Approach (ICD-10-PCS; principal; 2021-01-16)
DX: K72.90 Hepatic failure, unspecified without coma (principal); I50.23 Acute on chronic systolic (congestive) heart failure; N18.6 End stage renal disease; I13.2 Hypertensive heart and chronic kidney disease with heart failure and with stage 5 chronic kidney disease, or end stage renal disease; K76.6 Portal hypertension; R18.8 Other ascites; I42.9 Cardiomyopathy, unspecified; D64.9 Anemia, unspecified; E03.9 Hypothyroidism, unspecified; Z20.822 Contact with and (suspected) exposure to COVID-19; K21.9 Gastro-esophageal reflux disease without esophagitis; R94.01 Abnormal electroencephalogram [EEG]; F20.9 Schizophrenia, unspecified; E16.2 Hypoglycemia, unspecified; J44.9 Chronic obstructive pulmonary disease, unspecified; Z96.649 Presence of unspecified artificial hip joint; K74.60 Unspecified cirrhosis of liver; Z78.1 Physical restraint status; Z81.8 Family history of other mental and behavioral disorders; Z99.2 Dependence on renal dialysis; Z88.8 Allergy status to other drugs, medicaments and biological substances; Z88.5 Allergy status to narcotic agent; Z79.899 Other long term (current) drug therapy
CPT/HCPCS: 36415; 70450; 70544; 70551; 74176; 80048; 80053; 80061; 80076; 80305; 81001; 82140; 82607; 82948; 83036; 83690; 83735; 84100; 84443; 85008; 85025; 85610; 85651; 85730; 87081; 87088; 87635; 92508; 92616; 93306; 93880; 94760; 95816; 96372; 97161; 97530; 97535; 99285; G0257; G0378; J0696; J1630; J1644; J7030; J7042; Q0163; Q4081

== ENCOUNTER 2021-03-27 08:23 | Day surgery (SDC) | payer MEDICARE, MEDICAID ==
[~2021-03-27] VITALS: Ht 167.6 cm; Wt 73.9 kg
[~2021-03-27 08:23] MED LIST changes: +ALPR-149 PO; +ASPI-1071 PO; -B COMPLEX; -CBD PO; -CBD gummies PO; +FLUC200T93 PO; +KETO15CR2 TOP; +LEVO25TA7 PO; -OMEG1CAP2; +OMEP-50 PO; +ONDA4TAB12 SL; +RISP0.5T65 PO; +TRAZ-251 PO; -[UNRECOGNIZED DRUG - CODE]
[2021-03-27] MEDS ORDERED: albumin 25% 100mL bottle x 1 IV PRN (08:45)
[2021-03-27 09:30] VITALS: BP 118/73
[2021-03-27] MEDS ORDERED: ARIP5TAB60 PO (10:28)
[2021-03-27] MEDS ORDERED: ASPI-1397 PO (10:28)
[2021-03-27] MEDS ORDERED: FURO20TA4 PO (10:28)
[2021-03-27] MEDS ORDERED: LACT10SO3 PO (10:28)
[2021-03-27] MEDS ORDERED: METO-395 PO (10:28)
== END 2021-03-27 09:45 | disposition home or self-care (01) ==
LOC: SSTAY O 08:23
PROVIDERS: ATTEND Preventive Medicine Aerospace Medicine
DX: R18.8 Other ascites (principal); Z53.8 Procedure and treatment not carried out for other reasons; R14.0 Abdominal distension (gaseous); K74.60 Unspecified cirrhosis of liver; I50.9 Heart failure, unspecified; N18.6 End stage renal disease; G93.40 Encephalopathy, unspecified; Z90.49 Acquired absence of other specified parts of digestive tract; Z88.5 Allergy status to narcotic agent; Z88.8 Allergy status to other drugs, medicaments and biological substances; Z79.899 Other long term (current) drug therapy
CPT/HCPCS: 76705

== ENCOUNTER 2021-04-12 07:47 | Day surgery (SDC) | payer MEDICARE, MEDICAID ==
[~2021-04-12] VITALS: Ht 167.6 cm; Wt 71.9 kg
[2021-04-12] VITALS (9 sets, daily range): BP systolic 129–138; BP diastolic 66–92
[~2021-04-12 07:47] MED LIST changes: -ALBU18HF2 INH; -ALPR-149 PO; +ARIP5TAB60 PO; -ASPI-1071 PO; +ASPI-1397 PO; -CARV3.12 PO; +FURO20TA4 PO; +LACT10SO3 PO; -LEVO25TA7 PO; +METO-395 PO; -RISP0.5T65 PO; -TRAZ-251 PO
[2021-04-12] MEDS ORDERED: albumin 25% 100mL bottle x 1 IV PRN (08:10)
[2021-04-12] MEDS ORDERED: LIDOcaine 1% 30ml preserv. free vial IJ STA (08:12)
== END 2021-04-12 12:00 | disposition home or self-care (01) ==
LOC: SSTAY O 07:47
PROVIDERS: ATTEND Radiology Diagnostic Radiology
DX: R18.8 Other ascites (principal); R14.0 Abdominal distension (gaseous); K74.60 Unspecified cirrhosis of liver; N18.6 End stage renal disease; I50.9 Heart failure, unspecified; G93.40 Encephalopathy, unspecified; Z90.49 Acquired absence of other specified parts of digestive tract; Z88.8 Allergy status to other drugs, medicaments and biological substances; Z88.5 Allergy status to narcotic agent
CPT/HCPCS: 49083; J3490; P9047

== ENCOUNTER 2021-05-29 07:58 | Day surgery (SDC) | payer MEDICARE, MEDICAID ==
[~2021-05-29] VITALS: Ht 160 cm; Wt 72.8 kg
[~2021-05-29 07:58] MED LIST changes: -FLUC200T93 PO; -OMEP-50 PO; +OMEP20CA16 PO
[2021-05-29] MEDS ORDERED: LIDOcaine 1% 30ml preserv. free vial SQ STA (08:08)
[2021-05-29] MEDS ORDERED: albumin 25% 100mL bottle x 1 IV PRN (08:25)
[2021-05-29 08:40] VITALS: BP 132/91
[2021-05-29 09:15] VITALS: BP 129/84
[2021-05-29 09:30] VITALS: BP 132/80
[2021-05-29 09:45] VITALS: BP 128/78
[2021-05-29 10:15] VITALS: BP 135/91
== END 2021-05-29 10:30 | disposition home or self-care (01) ==
LOC: SSTAY O 07:58
PROVIDERS: ATTEND Radiology Vascular & Interventional Radiology
DX: R18.8 Other ascites (principal); R14.0 Abdominal distension (gaseous); K74.60 Unspecified cirrhosis of liver; I50.9 Heart failure, unspecified; N18.6 End stage renal disease; G93.40 Encephalopathy, unspecified; Z90.49 Acquired absence of other specified parts of digestive tract; Z88.8 Allergy status to other drugs, medicaments and biological substances; Z88.5 Allergy status to narcotic agent; Z79.82 Long term (current) use of aspirin; Z79.899 Other long term (current) drug therapy
CPT/HCPCS: 49083

== ENCOUNTER 2021-06-21 08:02 | Day surgery (SDC) | payer MEDICARE, MEDICAID ==
[~2021-06-21] VITALS: Ht 167.6 cm; Wt 72.4 kg
[~2021-06-21 08:02] MED LIST changes: -LACT10SO3 PO; +LIDOcaine 1%/PF 5ML 10 MG/ML VIAL IJ ONE
[2021-06-21] MEDS ORDERED: albumin 25% 100mL bottle x 1 IV PRN (08:20)
[2021-06-21] MEDS ORDERED: SEVE2.4P3 PO (08:39)
[2021-06-21] MEDS ORDERED: RIFA550T PO (08:39)
[2021-06-21] MEDS ORDERED: TRAZ-251 PO (08:39)
[2021-06-21] MEDS ORDERED: LACT10SO3 PO (08:39)
[2021-06-21] MEDS ORDERED: LEVO25TA7 PO (08:39)
[2021-06-21] MEDS ORDERED: RISP0.5T65 PO (08:39)
[2021-06-21 09:00] VITALS: BP 139/77
[2021-06-21 09:20] VITALS: BP 142/77
[2021-06-21 09:35] VITALS: BP 138/81
[2021-06-21 09:50] VITALS: BP 124/73
[2021-06-21 10:05] VITALS: BP 131/75
== END 2021-06-21 10:20 | disposition home or self-care (01) ==
LOC: SSTAY O 08:02
PROVIDERS: ATTEND Radiology Diagnostic Radiology
DX: R18.8 Other ascites (principal); R14.0 Abdominal distension (gaseous); N18.6 End stage renal disease; I50.9 Heart failure, unspecified; K74.60 Unspecified cirrhosis of liver; Z90.49 Acquired absence of other specified parts of digestive tract; Z88.5 Allergy status to narcotic agent; Z88.8 Allergy status to other drugs, medicaments and biological substances; Z79.899 Other long term (current) drug therapy
CPT/HCPCS: 49083

== ENCOUNTER 2021-07-13 07:53 | Day surgery (SDC) | payer MEDICARE, MEDICAID ==
[~2021-07-13] VITALS: Ht 167.6 cm; Wt 72.7 kg
[~2021-07-13 07:53] MED LIST changes: -ASPI-1397 PO; -KETO15CR2 TOP; +LACT10SO3 PO; +LEVO25TA7 PO; -LIDOcaine 1%/PF 5ML 10 MG/ML VIAL IJ ONE; +RIFA550T PO; +RISP0.5T65 PO; +SEVE2.4P3 PO; +TRAZ-251 PO
[2021-07-13] MEDS ORDERED: albumin 25% 100mL bottle x 1 IV PRN (08:15)
[2021-07-13 08:18] VITALS: BP 134/78
[2021-07-13] MEDS ORDERED: LIDOcaine 1%/PF 5ML 10 MG/ML VIAL SQ ONE (08:50)
== END 2021-07-13 09:38 | disposition home or self-care (01) ==
LOC: SSTAY O 07:53
PROVIDERS: ATTEND Radiology Diagnostic Radiology
DX: R18.8 Other ascites (principal); Z53.8 Procedure and treatment not carried out for other reasons; R14.0 Abdominal distension (gaseous); I50.9 Heart failure, unspecified; N18.6 End stage renal disease; K74.60 Unspecified cirrhosis of liver; G93.40 Encephalopathy, unspecified; Z90.49 Acquired absence of other specified parts of digestive tract; Z79.899 Other long term (current) drug therapy
CPT/HCPCS: 76705

== ENCOUNTER 2021-07-30 07:43 | Day surgery (SDC) | payer MEDICARE, MEDICAID ==
[~2021-07-30] VITALS: Ht 167.6 cm; Wt 73.5 kg
[2021-07-30 08:02] VITALS: BP 139/82
[2021-07-30] MEDS ORDERED: LIDOcaine 1%/PF 5ML 10 MG/ML VIAL SQ ONE (08:05)
[2021-07-30] MEDS ORDERED: albumin 25% 100mL bottle x 1 IV PRN (08:20)
[2021-07-30 09:05] VITALS: BP 154/84
[2021-07-30 09:20] VITALS: BP 151/90
[2021-07-30 09:35] VITALS: BP 154/90
[2021-07-30 09:50] VITALS: BP 152/88
[2021-07-30 10:05] VITALS: BP 154/84
== END 2021-07-30 10:05 | disposition home or self-care (01) ==
LOC: SSTAY O 07:43
PROVIDERS: ATTEND Radiology Diagnostic Radiology
DX: R18.8 Other ascites (principal); R14.0 Abdominal distension (gaseous); I50.9 Heart failure, unspecified; N18.6 End stage renal disease; K74.60 Unspecified cirrhosis of liver; G93.40 Encephalopathy, unspecified; Z90.49 Acquired absence of other specified parts of digestive tract; Z88.5 Allergy status to narcotic agent; Z88.8 Allergy status to other drugs, medicaments and biological substances; Z79.899 Other long term (current) drug therapy
CPT/HCPCS: 49083; 76705

== ENCOUNTER 2021-08-31 19:24 | Inpatient (IN) | payer MEDICARE, MEDICAID ==
[~2021-08-31] VITALS: Ht 167.6 cm; Wt 70.9 kg
[2021-08-31 21:02] LABS: BASOPHILS % (AUTO) 0.4 % (0-1); EOSINOPHILS # (AUTO) 0.1 X10'3 (0-0.9); EOSINOPHILS % (AUTO) 0.6 % (0-6); HEMATOCRIT 29.6 % (35.0-45.0); HEMOGLOBIN 9.7 g/dl (12.0-16.0); LYMPHOCYTES # (AUTO) 0.3 X10'3 (1.1-4.8); LYMPHOCYTES % (AUTO) 3.4 % (21-51); MEAN CORPUSCULAR HEMOGLOBIN 29.6 PG (27.0-31.0); MEAN CORPUSCULAR HGB CONC 32.7 g/dL (33.0-36.5); MEAN CORPUSCULAR VOLUME 90.5 FL (78-98); MEAN PLATELET VOLUME 7.6 FL (7.4-10.4); MONOCYTES # (AUTO) 0.7 X10'3 (0-0.9); MONOCYTES % (AUTO) 8.4 % (2-12); NEUTROPHILS % (AUTO) 87.2 % (42-75); PLATELET COUNT 366 X10'3 (140-440); RED BLOOD COUNT 3.28 X10'6 (4.20-5.60); RED CELL DISTRIBUTION WIDTH 17.8 % (11.5-14.5)
[2021-08-31 21:11] LABS: ALBUMIN 2.1 G/DL (3.4-5.0); ALBUMIN/GLOBULIN RATIO 0.3 (1.1-1.5); ALKALINE PHOSPHATASE 76 IU/L (46-116); ANION GAP 7 (8-16); ASPARTATE AMINO TRANSFERASE 8 U/L (10-37); BILIRUBIN,TOTAL 0.5 MG/DL (0.1-1.0); BLOOD UREA NITROGEN 24 MG/DL (7-18); BUN/CREATININE RATIO 5.7 (6.6-38.0); CALCIUM 8.6 MG/DL (8.5-10.1); CHLORIDE 97 MMOL/L (99-107); CREATININE 4.23 MG/DL (0.40-0.90); GLUCOSE 122 MG/DL (70-104); POTASSIUM 3.8 MMOL/L (3.5-5.1); SODIUM 135 MMOL/L (135-145); TOTAL CARBON DIOXIDE 30.8 MMOL/L (24-32); TOTAL PROTEIN 8.5 G/DL (6.4-8.2); eGFR 13 ML/MIN
[2021-08-31 21:12] LABS: ALANINE AMINOTRANSFERASE < 6 U/L (12-78)
[2021-08-31 21:19] LABS: AMYLASE 80 U/L (25-115); LIPASE < 50 U/L (73-393)
[2021-08-31] MEDS ORDERED: normal saline 1000ML IV soln IVB ONE (22:20)
[2021-08-31] MEDS ORDERED: piperacillin/tazo 3.375gm/50ml 50 ML IV ONE (22:20)
[2021-08-31] MEDS ORDERED: vancomycin/NS 1 GM ADD-VANTAGE 250 ML IV ONE (22:20)
--- NOTE | 2021-08-31 22:57 | NUR ---
thomas RN, started iv antibiotics on pt
[2021-09-01] MEDS ORDERED: FERR240T5 PO (01:19)
[2021-09-01] MEDS ORDERED: FURO-150 PO (01:19)
[2021-09-01] MEDS ORDERED: acetaminophen 325mg tablet PO PRN ×2 (01:30→18:05)
[2021-09-01] MEDS ORDERED: ondansetron/PF 4mg/2ml inj IV PRN (01:30)
[2021-09-01] MEDS ORDERED: mag hydrox/Alum hydrox/simeth 30ml oral suspension PO PRN (01:30)
[2021-09-01] MEDS ORDERED: magnesium hydroxide 30ml (MOM) UD suspension PO PRN (01:30)
[2021-09-01 01:48] LABS: GLUCOSE,BODY FLUID 96 MG/DL; LDH,BODY FLUID 349 U/L
[2021-09-01 02:49] LABS: BFAPPEAR CLOUDY
[2021-09-01 02:51] LABS: BF RBC COUNT 7450 /CU MM; BF WBC COUNT 550 /CU MM (0-1000); BFCOLOR RED; BFVOLUME 50 ML; LYMPHOCYTES,BODY FLUID 3 %; MONOCYTES,BODY FLUID 20 %; NEUTROPHILS,BODY FLUID 77 %
[2021-09-01] MEDS: HYDROmorphone/PF 0.2 MG/ML SYRINGE IV PRN ×2 (03:43→11:10)
--- NOTE | 2021-09-01 04:11 | NUR ---
Moved patient to hospital bed.
[2021-09-01] MEDS ORDERED: vancomycin/NS 1 GM ADD-VANTAGE 250 ML IV PRN (06:35)
--- NOTE | 2021-09-01 06:50 | NUR ---
Small liquid orange/brown BM. Pt c/o abd pain. Awake and alert.
--- NOTE | 2021-09-01 07:41 | NUR ---
pt moved to er bed 11. report received from guillermo hand. pt resting in bed, bedside commode provided. vitals updated, poc updated. denies needs at this time, call lee within reach. no distress.
[2021-09-01] MEDS ORDERED: metoprolol succinate 25mg (24-HOUR) SR. Tablet PO SCH (08:00)
[2021-09-01] MEDS ORDERED: furosemide 20MG tablet PO SCH (08:00)
[2021-09-01] MEDS ORDERED: lactulose 20gm/30ml cup PO SCH (08:00)
[2021-09-01] MEDS ORDERED: ferrous gluconate 324mg tablet PO SCH (08:00)
[2021-09-01] MEDS: docusate sod 100mg capsule PO SCH ×2 (08:00→20:00)
[2021-09-01] MEDS ORDERED: aripiprazole 5mg tablet PO SCH (08:00)
[2021-09-01] MEDS ORDERED: levoTHYROXINE 25mcg tablet PO SCH (08:00)
[2021-09-01] MEDS: pantoprazole 40mg Tablet.DR PO SCH ×2 (08:55→19:43)
[2021-09-01] MEDS: furosemide 20MG tablet PO SCH ×2 (08:56→19:44)
[2021-09-01] MEDS: piperacillin/tazo 3.375gm/50ml 50 ML IV SCH ×2 (10:34→23:19)
--- NOTE | 2021-09-01 12:30 | NUR ---
LUNCH TRAY PROVIDED FOR PT, SITTING IN BED TOLERATING WELL.
--- NOTE | 2021-09-01 17:00 | NUR ---
Pt arrived to floor w/family member at bedside.
--- NOTE | 2021-09-01 17:14 | NUR ---
TELEPHONE REPORT TO TAWANDA MERRILL
[2021-09-01 18:00] VITALS: BP 122/63
--- NOTE | 2021-09-01 18:45 | NUR ---
Report given to HARPER NEFF's. Pt eating dinner at this time, given tylenol for pain.
[2021-09-01] MEDS ORDERED: HYDROmorphone inj. 0.5 MG/0.5 ML DISP.SYRIN IV ONE (19:20)
[2021-09-01] MEDS ORDERED: traZODone 50mg tablet PO SCH (21:00)
[2021-09-01] MEDS ORDERED: HYDROmorphone 1 mg/ml syringe IV ONE (21:55)
[2021-09-01 22:00] VITALS: BP 118/60
[2021-09-01 23:06] VITALS: BP 119/68
--- NOTE | 2021-09-01 23:31 | NUR ---
MD was called around 19.24 regarding pt's abdominal pain .He ordered Dilaudid 0.5mg iv once to be given. Around 21.25, MD was called again regarding pt's abdominal pain which was not relieved by the first dose. Dilaudid 1mg iv once was ordered by the MD to be given.
[2021-09-02 02:00] VITALS: BP 118/67
[2021-09-02] MEDS ORDERED: VANCOMYCIN LEVEL IV ONE (03:00)
[2021-09-02 03:54] LABS: ALANINE AMINOTRANSFERASE 6 U/L (12-78); ALBUMIN 1.8 G/DL (3.4-5.0); ALBUMIN/GLOBULIN RATIO 0.3 (1.1-1.5); ALKALINE PHOSPHATASE 71 IU/L (46-116); ANION GAP 6 (8-16); ASPARTATE AMINO TRANSFERASE 12 U/L (10-37); BILIRUBIN,TOTAL 0.5 MG/DL (0.1-1.0); BLOOD UREA NITROGEN 36 MG/DL (7-18); BUN/CREATININE RATIO 6.2 (6.6-38.0); CALCIUM 8.3 MG/DL (8.5-10.1); CHLORIDE 97 MMOL/L (99-107); CREATININE 5.77 MG/DL (0.40-0.90); GLUCOSE 84 MG/DL (70-104); POTASSIUM 4.2 MMOL/L (3.5-5.1); SODIUM 133 MMOL/L (135-145); TOTAL CARBON DIOXIDE 29.6 MMOL/L (24-32); TOTAL PROTEIN 7.8 G/DL (6.4-8.2); VANCOMYCIN,RANDOM 16.2 UG/ML; eGFR 9 ML/MIN
--- NOTE | 2021-09-02 05:08 | NUR ---
Pt HOME medications sent to pharmacy. Reference slip located in chart.
[2021-09-02 06:00] VITALS: BP 109/62
[2021-09-02 06:54] LABS: BASOPHILS % (AUTO) 0.6 % (0-1); EOSINOPHILS # (AUTO) 0.1 X10'3 (0-0.9); EOSINOPHILS % (AUTO) 1.7 % (0-6); HEMATOCRIT 28.7 % (35.0-45.0); HEMOGLOBIN 9.4 g/dl (12.0-16.0); LYMPHOCYTES # (AUTO) 0.3 X10'3 (1.1-4.8); LYMPHOCYTES % (AUTO) 5.2 % (21-51); MEAN CORPUSCULAR HEMOGLOBIN 29.9 PG (27.0-31.0); MEAN CORPUSCULAR HGB CONC 32.7 g/dL (33.0-36.5); MEAN CORPUSCULAR VOLUME 91.4 FL (78-98); MEAN PLATELET VOLUME 7.9 FL (7.4-10.4); MONOCYTES # (AUTO) 0.6 X10'3 (0-0.9); MONOCYTES % (AUTO) 9.4 % (2-12); NEUTROPHILS # (AUTO) 5.6 X10'3 (1.8-7.7); NEUTROPHILS % (AUTO) 83.1 % (42-75); PLATELET COUNT 359 X10'3 (140-440); RED BLOOD COUNT 3.14 X10'6 (4.20-5.60); WHITE BLOOD COUNT 6.7 X10'3 (4.5-11.0)
--- NOTE | 2021-09-02 09:31 | NUR ---
Malnutrition consult: Pt admitted w./ cirrhosis w/ ascites, currently on HD, and had paracentesis in the ED w/ 1L removed per EMR. Per MST pt reports 14-23lb wt loss. Current wt not scaled though consistent w/ wts from 2019. Wt likely to fluctuate r/t HD and cirrhosis. Noted w/ abd 3+ edema though likely r/t ascites. Pt appears WD/WN per ED noted. At this time pt does not meet minimum criteria for malnutrition. Addendum: 09/02/21 at [address] Amended: Links added.
[2021-09-02 09:35] VITALS: BP 97/58
--- NOTE | 2021-09-02 10:11 | NUR ---
Patient not wanting to take meds this AM yet, will check back to see if she is feeling better and try again.
[2021-09-02 11:00] VITALS: BP 112/67
--- NOTE | 2021-09-02 13:10 | NUR ---
Patient discharged home with . Pt seems to be at baseline although she does not feel well. IV taken out, tele dc'd. Meds returned from pharmacy. Patient states understanding of discharge meds. Patient did not want to take AM meds since her appetite was poor and says she will take them when she gets home. Dr Alfaor aware.
[2021-09-03] MEDS ORDERED: VANCOMYCIN LEVEL IV SCH (03:00)
--- NOTE | 2021-09-10 12:10 | NUR ---
Case Management DC follow up:,Spoke with Patient's via telephone.S/P:Denies:Acute/continuous Chest pain,emergent SOB, resp distress, nausea/vomiting, headache,blurry vision, signs/symptoms of stroke/BE-FAST, hematuria, abdominal pain/distention,hematochezia, melena, unexplained bruising, bleeding, fever, chills.Verbalizes understanding s/s that warrant 9-11/ER visit for further evaluation.Verbalizes abdomen sore, but not painful.Verbalizes understanding of new Rx:,why prescribed; continues/resumes current Rx as ordered.Verbalizes the Nurses were good ; however, very upset with the physician. Verbalizes the Dr. did not explain anything; just told them there is nothing we can do for you.Verbalizes appointment for paracenteses is scheduled on 09/27/21, and follow up with PCP is scheduled on 09/25/21.Verbalized their questions/concerns were not addresses by the Physician Encouraged Patient to follow up with Primary Physician to address questions and concerns at this time.
== END 2021-09-02 12:54 | disposition home or self-care (01) | DRG 393 ==
LOC: ER 19:25 → ED HOLD 09-01 01:31 → PCU 3S 09-01 17:26
PROVIDERS: ADMIT Internal Medicine; ATTEND Internal Medicine
PROC: 0W9G3ZZ Drainage of Peritoneal Cavity, Percutaneous Approach (ICD-10-PCS; principal; 2021-08-31)
DX: K52.1 Toxic gastroenteritis and colitis (principal); N18.6 End stage renal disease; R18.8 Other ascites; K76.6 Portal hypertension; Z20.822 Contact with and (suspected) exposure to COVID-19; K74.60 Unspecified cirrhosis of liver; E03.9 Hypothyroidism, unspecified; K21.9 Gastro-esophageal reflux disease without esophagitis; D63.8 Anemia in other chronic diseases classified elsewhere; T47.3X5A Adverse effect of saline and osmotic laxatives, initial encounter; K72.90 Hepatic failure, unspecified without coma; I50.9 Heart failure, unspecified; Z90.710 Acquired absence of both cervix and uterus; Z88.5 Allergy status to narcotic agent; Z88.8 Allergy status to other drugs, medicaments and biological substances; Z79.899 Other long term (current) drug therapy; Y92.89 Other specified places as the place of occurrence of the external cause
CPT/HCPCS: 36415; 71045; 74176; 80053; 80202; 82150; 82945; 83605; 83615; 83690; 83880; 84145; 84484; 85025; 86301; 86304; 87015; 87040; 87070; 87081; 87502; 87503; 87635; 88108; 88305; 88341; 88342; 89051; 99285; C9803; G0378; J1170; J2543; J3370; J7030

== ENCOUNTER 2021-09-06 06:33 | Day surgery (SDC) | payer MEDICARE, MEDICAID ==
[2021-09-06] VITALS (7 sets, daily range): BP systolic 130–138; BP diastolic 78–86
[~2021-09-06] VITALS: Ht 167.6 cm; Wt 73.5 kg
[~2021-09-06 06:33] MED LIST changes: +FERR240T5 PO; +FURO-150 PO; -FURO20TA4 PO; +LIDOcaine 1%/PF 5ML 10 MG/ML VIAL IJ ONE; -ONDA4TAB12 SL; -RIFA550T PO; -RISP0.5T65 PO; -SEVE2.4P3 PO
[2021-09-06] MEDS ORDERED: albumin 25% 100mL bottle x 1 IV PRN (07:00)
== END 2021-09-06 10:50 | disposition home or self-care (01) ==
LOC: SSTAY O 06:33
PROVIDERS: ATTEND Radiology Vascular & Interventional Radiology
DX: R18.8 Other ascites (principal); I50.9 Heart failure, unspecified; N18.6 End stage renal disease; K74.60 Unspecified cirrhosis of liver; Z99.2 Dependence on renal dialysis; Z90.49 Acquired absence of other specified parts of digestive tract; Z88.5 Allergy status to narcotic agent; Z88.8 Allergy status to other drugs, medicaments and biological substances; Z79.899 Other long term (current) drug therapy
CPT/HCPCS: 49083; J3490

== ENCOUNTER 2021-09-28 08:06 | Day surgery (SDC) | payer MEDICARE, MEDICAID ==
[~2021-09-28] VITALS: Ht 167.6 cm; Wt 69.1 kg
[~2021-09-28 08:06] MED LIST changes: -ARIP5TAB60 PO; -FERR240T5 PO; -LIDOcaine 1%/PF 5ML 10 MG/ML VIAL IJ ONE
[2021-09-28 08:32] VITALS: BP 126/85
[2021-09-28] MEDS ORDERED: albumin 25% 100mL bottle x 1 IV PRN (08:45)
[2021-09-28] MEDS ORDERED: LIDOcaine 1%/PF 5ML 10 MG/ML VIAL SQ ONE (08:45)
[2021-09-28 09:30] VITALS: BP 129/96
[2021-09-28 09:40] VITALS: BP 129/96
== END 2021-09-28 09:45 | disposition home or self-care (01) ==
LOC: SSTAY O 08:06
PROVIDERS: ATTEND Radiology Diagnostic Radiology
DX: R18.8 Other ascites (principal); K74.60 Unspecified cirrhosis of liver; N18.6 End stage renal disease; I12.0 Hypertensive chronic kidney disease with stage 5 chronic kidney disease or end stage renal disease; I50.9 Heart failure, unspecified; Z90.49 Acquired absence of other specified parts of digestive tract; Z98.890 Other specified postprocedural states; Z79.899 Other long term (current) drug therapy
CPT/HCPCS: 76705; A4615

== ENCOUNTER 2021-10-11 08:21 | Day surgery (SDC) | payer MEDICARE, MEDICAID ==
[~2021-10-11] VITALS: Ht 167.6 cm; Wt 69.0 kg
[~2021-10-11 08:21] MED LIST changes: +LIDOcaine 1% 30ml preserv. free vial IJ STA
[2021-10-11] MEDS ORDERED: albumin 25% 100mL bottle x 1 IV PRN (08:40)
[2021-10-11 08:45] VITALS: BP 119/69
[2021-10-11] MEDS ORDERED: NO HOME MEDS (08:45)
== END 2021-10-11 09:35 | disposition home or self-care (01) ==
LOC: SSTAY O 08:21
PROVIDERS: ATTEND Preventive Medicine Aerospace Medicine
DX: Z03.89 Encounter for observation for other suspected diseases and conditions ruled out (principal); I50.9 Heart failure, unspecified; N18.5 Chronic kidney disease, stage 5; F43.10 Post-traumatic stress disorder, unspecified; Z79.899 Other long term (current) drug therapy; Z88.8 Allergy status to other drugs, medicaments and biological substances; Z88.6 Allergy status to analgesic agent
CPT/HCPCS: 49083; 76705; A4615; A6258

== ENCOUNTER 2021-10-26 11:16 | Emergency (ER) | payer MEDICARE, MEDICAID ==
[~2021-10-26] VITALS: Ht 167.6 cm; Wt 72.0 kg
[~2021-10-26 11:16] MED LIST changes: -FURO-150 PO; -LACT10SO3 PO; -LEVO25TA7 PO; -LIDOcaine 1% 30ml preserv. free vial IJ STA; -METO-395 PO; +NO HOME MEDS; -OMEP20CA16 PO; -TRAZ-251 PO
[2021-10-26] MEDS ORDERED: ondansetron/PF 4mg/2ml inj IV ONE (12:50)
[2021-10-26] MEDS ORDERED: morphine 2 MG/ML inj. syringe IV ONE (12:50)
[2021-10-26] MEDS ORDERED: diphenhydrAMINE 50 mg/ml inj IV ONE (13:10)
[2021-10-26] MEDS ORDERED: EPOETIN ALFA-EPBX 20,000 UNIT/ML 1 ML MDV IV ONE (13:20)
[2021-10-26] MEDS ORDERED: normal saline 1000ml 250 ML IV PRN (13:20)
[2021-10-26] MEDS ORDERED: heparin 1,000unit/ml 10ml vial 10 ML IV ONE (13:20)
[2021-10-26] MEDS ORDERED: heparin 1,000 units/ml 10ml inj HE ONE ×2 (13:25)
[2021-10-26 13:47] LABS: BASOPHILS % (AUTO) 0.7 % (0-1); EOSINOPHILS % (AUTO) 0.3 % (0-6); HEMATOCRIT 37.2 % (35.0-45.0); LYMPHOCYTES # (AUTO) 0.4 X10'3 (1.1-4.8); LYMPHOCYTES % (AUTO) 5.6 % (21-51); MEAN CORPUSCULAR HEMOGLOBIN 30.4 PG (27.0-31.0); MEAN CORPUSCULAR HGB CONC 32.2 g/dL (33.0-36.5); MEAN CORPUSCULAR VOLUME 94.3 FL (78-98); MEAN PLATELET VOLUME 8.4 FL (7.4-10.4); MONOCYTES # (AUTO) 0.4 X10'3 (0-0.9); MONOCYTES % (AUTO) 6.5 % (2-12); NEUTROPHILS # (AUTO) 5.8 X10'3 (1.8-7.7); NEUTROPHILS % (AUTO) 86.9 % (42-75); PLATELET COUNT 168 X10'3 (140-440); RED BLOOD COUNT 3.94 X10'6 (4.20-5.60); RED CELL DISTRIBUTION WIDTH 21.9 % (11.5-14.5); WHITE BLOOD COUNT 6.6 X10'3 (4.5-11.0)
--- NOTE | 2021-10-26 14:12 | NUR ---
reports allergic reaction to morphine, does not remember adverse reaction, just remembers " i had to go back to the hospital", Dr. de leon made aware that pt is allergic to morphine.
--- NOTE | 2021-10-26 14:19 | NUR ---
patient reports she can have dilaudid," she's not getting dilaudid" per Dr. Wyman.Patient aware.
[2021-10-26 14:41] LABS: ALANINE AMINOTRANSFERASE 13 U/L (12-78); ALBUMIN 3.5 G/DL (3.4-5.0); ALBUMIN/GLOBULIN RATIO 0.5 (1.1-1.5); ALKALINE PHOSPHATASE 70 IU/L (46-116); ANION GAP 11 (8-16); ASPARTATE AMINO TRANSFERASE 11 U/L (10-37); BILIRUBIN,TOTAL 0.6 MG/DL (0.1-1.0); BLOOD UREA NITROGEN 56 MG/DL (7-18); CALCIUM 9.6 MG/DL (8.5-10.1); CHLORIDE 94 MMOL/L (99-107); CREATININE 7.04 MG/DL (0.40-0.90); GLUCOSE 144 MG/DL (70-104); POTASSIUM 4.4 MMOL/L (3.5-5.1); SODIUM 135 MMOL/L (135-145); TOTAL CARBON DIOXIDE 29.6 MMOL/L (24-32); TOTAL PROTEIN 10.6 G/DL (6.4-8.2); eGFR 7 ML/MIN
[2021-10-26 14:48] LABS: MAGNESIUM 2.8 MG/DL (1.5-2.4)
[2021-10-26 15:00] LABS: PLATELET ESTIMATE NORMAL
[2021-10-26 15:01] LABS: ANISOCYTOSIS 3+; TARGET CELLS FEW
[2021-10-26 15:02] LABS: ROULEAUX 1+; SPHEROCYTES FEW
--- NOTE | 2021-10-26 15:53 | NUR ---
dr. de leon at bedside.
[2021-10-26] MEDS ORDERED: metoclopramide 5 mg/ml inj IV STA (15:54)
--- NOTE | 2021-10-26 15:54 | NUR ---
Md ordered to admin reglan 10mg with benadryl.
[2021-10-26] MEDS ORDERED: morphine 2 MG/ML inj. syringe IV STA (16:04)
[2021-10-26 17:47] VITALS: BP 157/102
[2021-10-30 06:22] LABS: HBSAG SCREEN Negative (Negative)
== END 2021-10-26 17:50 | disposition home or self-care (01) ==
LOC: ER 11:16
DX: N18.6 End stage renal disease (principal); R10.9 Unspecified abdominal pain; Z88.5 Allergy status to narcotic agent; Z88.8 Allergy status to other drugs, medicaments and biological substances; Z90.49 Acquired absence of other specified parts of digestive tract
CPT/HCPCS: 36415; 71045; 80053; 83735; 83880; 84484; 85008; 85025; 87340; 93005; 96374; 96375; 99285; J1200; J2270; J2405; J2765

== ENCOUNTER 2021-11-29 08:32 | Day surgery (SDC) | payer MEDICARE, MEDICAID ==
[~2021-11-29] VITALS: Ht 167.6 cm; Wt 70.9 kg
[2021-11-29] MEDS ORDERED: LIDOcaine 1% 30ml preserv. free vial SQ STA (08:34)
[2021-11-29 08:45] VITALS: BP 129/89
--- NOTE | 2021-11-29 08:55 | NUR ---
Patient arrived with oxygen sats 87% on RA. Patient states she normally wears oxygen at home. Obtained order for NC 2lpm by Pritesh Mcqueen. Placed o2 on patient and sats now 97% on 2L.
[2021-11-29] MEDS ORDERED: albumin 25% 100mL bottle x 1 IV PRN (09:05)
--- NOTE | 2021-11-29 10:05 | NUR ---
Limited US performed at bedside. Not enough fluid to drain patient. Procedure canceled.
== END 2021-11-29 10:05 | disposition home or self-care (01) ==
LOC: SSTAY O 08:32
PROVIDERS: ATTEND Radiology Vascular & Interventional Radiology
DX: R18.8 Other ascites (principal); K74.60 Unspecified cirrhosis of liver; N18.6 End stage renal disease; I50.9 Heart failure, unspecified; Z90.49 Acquired absence of other specified parts of digestive tract; Z88.6 Allergy status to analgesic agent; Z88.8 Allergy status to other drugs, medicaments and biological substances; Z98.890 Other specified postprocedural states; Z79.899 Other long term (current) drug therapy
CPT/HCPCS: 76705; A4615; A6258

== ENCOUNTER 2021-12-17 08:44 | Day surgery (SDC) | payer MEDICARE, MEDICAID ==
[~2021-12-17] VITALS: Ht 167.6 cm; Wt 74.8 kg
[2021-12-17] VITALS (8 sets, daily range): BP systolic 123–149; BP diastolic 77–101
[2021-12-17] MEDS ORDERED: LIDOcaine 1%/PF 5ML 10 MG/ML VIAL SQ ONE (08:50)
[2021-12-17] MEDS ORDERED: albumin 25% 100mL bottle x 1 IV PRN (09:20)
[2021-12-17] MEDS ORDERED: ondansetron 4mg rapidly disintigrating tab PO ONE (09:40)
== END 2021-12-17 10:45 | disposition home or self-care (01) ==
LOC: SSTAY O 08:44
PROVIDERS: ATTEND Radiology Diagnostic Radiology
DX: R18.8 Other ascites (principal); N18.6 End stage renal disease; K74.60 Unspecified cirrhosis of liver; I50.9 Heart failure, unspecified; Z90.49 Acquired absence of other specified parts of digestive tract; Z88.6 Allergy status to analgesic agent; Z88.8 Allergy status to other drugs, medicaments and biological substances; Z79.899 Other long term (current) drug therapy; Z98.890 Other specified postprocedural states
CPT/HCPCS: 49083; J3490; A4615; A6258; A6449

== ENCOUNTER 2022-01-08 08:38 | Day surgery (SDC) | payer MEDICARE, MEDICAID ==
[~2022-01-08] VITALS: Ht 167.6 cm; Wt 70.8 kg
[2022-01-08] MEDS ORDERED: LIDOcaine 1%/PF 5ML 10 MG/ML VIAL IJ ONE (08:45)
[2022-01-08] MEDS ORDERED: LIDOcaine 1% 30ml preserv. free vial IJ STA (08:55)
[2022-01-08 09:01] VITALS: BP 133/86
[2022-01-08 09:35] VITALS: BP 121/68
[2022-01-08] MEDS ORDERED: albumin 25% 100mL bottle x 1 IV PRN (09:40)
[2022-01-08 09:50] VITALS: BP 126/72
[2022-01-08 10:01] VITALS: BP 125/75
== END 2022-01-08 10:08 | disposition home or self-care (01) ==
LOC: SSTAY O 08:38
PROVIDERS: ATTEND Radiology Diagnostic Radiology
DX: R18.8 Other ascites (principal); K74.60 Unspecified cirrhosis of liver; N18.6 End stage renal disease; I50.9 Heart failure, unspecified; Z90.49 Acquired absence of other specified parts of digestive tract; Z79.899 Other long term (current) drug therapy
CPT/HCPCS: 49083; J3490; A6258; A6449

== ENCOUNTER 2022-03-08 09:11 | Day surgery (SDC) | payer MEDICARE, MEDICAID ==
[~2022-03-08] VITALS: Ht 167.6 cm; Wt 71.0 kg
[2022-03-08 09:30] VITALS: BP 145/89
[2022-03-08] MEDS ORDERED: LIDOcaine 1% 30ml preserv. free vial SQ STA (09:30)
[2022-03-08] MEDS ORDERED: albumin 25% 100mL bottle x 1 IV PRN (09:45)
== END 2022-03-08 10:40 | disposition home or self-care (01) ==
LOC: SSTAY O 09:11
PROVIDERS: ATTEND Radiology Vascular & Interventional Radiology
DX: R18.8 Other ascites (principal); K74.60 Unspecified cirrhosis of liver; N18.6 End stage renal disease; I50.9 Heart failure, unspecified; Z88.5 Allergy status to narcotic agent; Z88.8 Allergy status to other drugs, medicaments and biological substances; Z90.49 Acquired absence of other specified parts of digestive tract; Z88.6 Allergy status to analgesic agent
CPT/HCPCS: 76705; A6258

== ENCOUNTER 2022-03-25 09:12 | Day surgery (SDC) | payer MEDICARE, MEDICAID ==
[~2022-03-25] VITALS: Ht 167.6 cm; Wt 70.0 kg
[2022-03-25] MEDS ORDERED: albumin 25% 100mL bottle x 1 IV PRN (09:35)
[2022-03-25] MEDS ORDERED: LIDOcaine 1% 30ml preserv. free vial SQ STA (09:35)
== END 2022-03-25 10:10 | disposition home or self-care (01) ==
LOC: SSTAY O 09:12
PROVIDERS: ATTEND Radiology Vascular & Interventional Radiology
DX: R18.8 Other ascites (principal); K74.60 Unspecified cirrhosis of liver; N18.6 End stage renal disease; I50.9 Heart failure, unspecified; Z95.0 Presence of cardiac pacemaker; Z90.49 Acquired absence of other specified parts of digestive tract; Z98.890 Other specified postprocedural states; Z79.899 Other long term (current) drug therapy
CPT/HCPCS: 76705; A6258

== ENCOUNTER 2022-05-21 08:40 | Day surgery (SDC) | payer MEDICARE, MEDICAID ==
[~2022-05-21] VITALS: Ht 167.6 cm; Wt 72.4 kg
[2022-05-21 08:51] VITALS: BP 124/68
[2022-05-21] MEDS ORDERED: albumin 25% 100mL bottle x 1 IV PRN (08:55)
[2022-05-21] MEDS ORDERED: LIDOcaine 1% 30ml preserv. free vial SQ STA (08:56)
--- NOTE | 2022-05-21 10:00 | NUR ---
Procedure cancelled. Ultrasound showed limited fluid to drain.
== END 2022-05-21 09:15 | disposition home or self-care (01) ==
LOC: SSTAY O 08:40
PROVIDERS: ATTEND Radiology Vascular & Interventional Radiology
DX: R18.8 Other ascites (principal); Z53.8 Procedure and treatment not carried out for other reasons; N18.6 End stage renal disease; I50.9 Heart failure, unspecified; G93.40 Encephalopathy, unspecified; Z90.49 Acquired absence of other specified parts of digestive tract; Z99.2 Dependence on renal dialysis; Z88.5 Allergy status to narcotic agent; Z88.8 Allergy status to other drugs, medicaments and biological substances; Z79.899 Other long term (current) drug therapy
CPT/HCPCS: A6258

== ENCOUNTER 2022-10-31 08:27 | Day surgery (SDC) | payer MEDICARE, MEDICAID ==
[~2022-10-31] VITALS: Ht 6 cm; Wt 67.9 kg
[2022-10-31] MEDS ORDERED: LIDOcaine 1% 30ml preserv. free vial SQ STA (08:43)
[2022-10-31] MEDS ORDERED: albumin 25% 100mL bottle x 1 IV PRN (08:50)
--- NOTE | 2022-10-31 09:30 | NUR ---
Procedure not performed, no acites fluid
== END 2022-10-31 09:25 | disposition home or self-care (01) ==
LOC: SSTAY O 08:27
PROVIDERS: ATTEND Radiology Vascular & Interventional Radiology
DX: R18.8 Other ascites (principal); Z53.8 Procedure and treatment not carried out for other reasons; R14.0 Abdominal distension (gaseous); K74.60 Unspecified cirrhosis of liver; I50.9 Heart failure, unspecified; N18.6 End stage renal disease; Z88.5 Allergy status to narcotic agent; Z88.8 Allergy status to other drugs, medicaments and biological substances; Z99.2 Dependence on renal dialysis; Z98.890 Other specified postprocedural states; Z90.49 Acquired absence of other specified parts of digestive tract; Z79.899 Other long term (current) drug therapy
CPT/HCPCS: 76705; A6258; A6449

== ENCOUNTER 2024-01-13 10:57 | Inpatient (IN) | payer MEDICARE, MEDICAID ==
[~2024-01-13] VITALS: Ht 167.6 cm; Wt 75.0 kg
[2024-01-13] MEDS: morphine 10mg/ml inj. IV ONE (12:55)
[2024-01-13] MEDS: ondansetron/PF 4mg/2ml inj IV ONE (13:36)
[2024-01-13] MEDS: HYDROmorphone 1 mg/ml syringe IV ONE ×2 (13:36→18:07)
[2024-01-13 13:59] LABS: BASOPHILS % (AUTO) 0.6 % (0-1); EOSINOPHILS % (AUTO) 0.3 % (0-6); HEMATOCRIT 33.2 % (35.0-45.0); HEMOGLOBIN 10.4 g/dl (12.0-16.0); LYMPHOCYTES # (AUTO) 0.3 X10'3 (1.1-4.8); LYMPHOCYTES % (AUTO) 5.4 % (21-51); MEAN CORPUSCULAR HEMOGLOBIN 29.3 PG (27.0-31.0); MEAN CORPUSCULAR HGB CONC 31.3 g/dL (33.0-36.5); MEAN CORPUSCULAR VOLUME 93.6 FL (78-98); MONOCYTES # (AUTO) 0.2 X10'3 (0-0.9); MONOCYTES % (AUTO) 4.1 % (2-12); NEUTROPHILS # (AUTO) 5.2 X10'3 (1.8-7.7); NEUTROPHILS % (AUTO) 89.6 % (42-75); PLATELET COUNT 312 X10'3 (140-440); RED BLOOD COUNT 3.54 X10'6 (4.20-5.60); RED CELL DISTRIBUTION WIDTH 19.8 % (11.5-14.5); WHITE BLOOD COUNT 5.8 X10'3 (4.5-11.0)
[2024-01-13 14:18] LABS: ALBUMIN 2.4 G/DL (3.4-5.0); ANION GAP 17 (8-16); BLOOD UREA NITROGEN 49 MG/DL (7-18); BUN/CREATININE RATIO 4.3 (10.0-20.0); CALCIUM 8.5 MG/DL (8.5-10.1); CHLORIDE 93 MMOL/L (99-107); CREATININE 11.51 MG/DL (0.40-0.90); GLUCOSE 64 MG/DL (70-104); SODIUM 133 MMOL/L (135-145); TOTAL CARBON DIOXIDE 22.6 MMOL/L (24-32); eCRCL 5 ML/MIN; eGFR 4 ML/MIN
[2024-01-13 14:34] LABS: ANISOCYTOSIS 2+; BURR CELLS 1+; PLATELET ESTIMATE NORMAL; ROULEAUX 1+
[2024-01-13 14:35] LABS: HYPOCHROMASIA 1+; TEAR DROP CELLS FEW
[2024-01-13 14:43] LABS: POTASSIUM 5.1 MMOL/L (3.5-5.1)
[2024-01-13] MEDS: CefTRIAXone 2gm/D5W 50ml BAG 50 ML IV ONE (18:52)
[2024-01-13 19:46] LABS: INR 1.1 INR; PROTHROMBIN TIME 11.9 SECONDS (9.0-12.0)
[2024-01-13] MEDS ORDERED: magnesium Cl slow-release 64mg tablet PO PRN (20:10)
[2024-01-13] MEDS ORDERED: potassium Cl 20 mEq SR tablet PO PRN ×2 (20:10)
[2024-01-13] MEDS ORDERED: acetaminophen 325mg tablet PO PRN (20:10)
[2024-01-13] MEDS ORDERED: magnesium sulf-water 4G/100mL 100 ML IV PRN (20:10)
[2024-01-13] MEDS ORDERED: potassium Cl 40MEQ/1/2NS 520ml 520 ML IV PRN (20:10)
[2024-01-13] MEDS ORDERED: magnesium sulf-water 2g/50mL 50 ML IV PRN (20:10)
[2024-01-13 20:42] LABS: HEMOGLOBIN A1C 4.4 % (4.5-6.2)
[2024-01-13 21:39] LABS: ALANINE AMINOTRANSFERASE 13 U/L (12-78); ALBUMIN/GLOBULIN RATIO 0.4 (1.1-1.5); ALKALINE PHOSPHATASE 108 IU/L (46-116); ASPARTATE AMINO TRANSFERASE 48 U/L (10-37); BILIRUBIN,TOTAL 1.6 MG/DL (0.1-1.0); TOTAL PROTEIN 8.6 G/DL (6.4-8.2)
[2024-01-14] VITALS (12 sets, daily range): BP systolic 86–130; BP diastolic 45–75; PULSE 80–125; RESP 16–23; TEMP 97.8–98.2; O2SAT 91–100
[2024-01-14] MEDS: morphine 2 MG/ML inj. syringe IV PRN (02:00)
[2024-01-14 03:52] LABS: BASOPHILS # (AUTO) 0.1 X10'3 (0-0.2); EOSINOPHILS # (AUTO) 0.1 X10'3 (0-0.9); HEMATOCRIT 32.2 % (35.0-45.0); HEMOGLOBIN 10.1 g/dl (12.0-16.0); LYMPHOCYTES # (AUTO) 0.4 X10'3 (1.1-4.8); LYMPHOCYTES % (AUTO) 7.7 % (21-51); MEAN CORPUSCULAR HEMOGLOBIN 29.3 PG (27.0-31.0); MEAN CORPUSCULAR HGB CONC 31.4 g/dL (33.0-36.5); MEAN CORPUSCULAR VOLUME 93.4 FL (78-98); MEAN PLATELET VOLUME 8.3 FL (7.4-10.4); MONOCYTES # (AUTO) 0.4 X10'3 (0-0.9); MONOCYTES % (AUTO) 6.6 % (2-12); NEUTROPHILS # (AUTO) 4.7 X10'3 (1.8-7.7); NEUTROPHILS % (AUTO) 82.7 % (42-75); PLATELET COUNT 303 X10'3 (140-440); RED BLOOD COUNT 3.45 X10'6 (4.20-5.60); RED CELL DISTRIBUTION WIDTH 19.9 % (11.5-14.5); WHITE BLOOD COUNT 5.6 X10'3 (4.5-11.0)
[2024-01-14 03:59] LABS: % IRON SATURATION 94 % (11-46); IRON 49 UG/DL (49-151); TOTAL IRON BINDING CAPACITY 52 UG/DL (259-388)
[2024-01-14 04:27] LABS: ALBUMIN 2.2 G/DL (3.4-5.0); ALBUMIN/GLOBULIN RATIO 0.4 (1.1-1.5); ALKALINE PHOSPHATASE 99 IU/L (46-116); ANION GAP 18 (8-16); ASPARTATE AMINO TRANSFERASE 40 U/L (10-37); BILIRUBIN,TOTAL 1.7 MG/DL (0.1-1.0); BLOOD UREA NITROGEN 53 MG/DL (7-18); BUN/CREATININE RATIO 4.4 (10.0-20.0); CALCIUM 8.5 MG/DL (8.5-10.1); CHLORIDE 95 MMOL/L (99-107); CHOLESTEROL 111 MG/DL (0-200); HDL CHOLESTEROL 55 MG/DL (35-60); LDL CHOLESTEROL 38 MG/DL (50-100); MAGNESIUM 2.7 MG/DL (1.5-2.4); POTASSIUM 5.5 MMOL/L (3.5-5.1); SODIUM 134 MMOL/L (135-145); TOTAL CARBON DIOXIDE 20.8 MMOL/L (24-32); TOTAL PROTEIN 7.9 G/DL (6.4-8.2); TRIGLYCERIDES 56 MG/DL (20-135); eCRCL 5 ML/MIN; eGFR 4 ML/MIN
[2024-01-14 04:28] LABS: ALANINE AMINOTRANSFERASE < 6 U/L (12-78); FERRITIN 2172 NG/ML (8-252)
[2024-01-14 04:32] LABS: GLUCOSE 42 MG/DL (70-104)
[2024-01-14] MEDS: docusate sod 100mg capsule PO SCH (07:33)
[2024-01-14] MEDS: K and/or MAG REPLACEMENT MC SCH (08:00)
[2024-01-14] MEDS: CefTRIAXone 2gm/D5W 50ml BAG 50 ML IV SCH (08:00)
[2024-01-14] MEDS: heparin, porcine 5000 units/ml vial SQ SCH (08:00)
[2024-01-14] MEDS: EPOETIN ALFA-EPBX 20,000 UNIT/ML 1 ML MDV IV ONE (13:10)
[2024-01-14] MEDS: heparin 1,000unit/ml 10ml vial 10 ML IV ONE (13:12)
[2024-01-14] MEDS: heparin 1,000 units/ml 10ml inj HE ONE ×2 (13:13)
[2024-01-14] MEDS: heparin 1,000 units/ml 10ml inj IV ONE (13:14)
[2024-01-14] MEDS: albumin (human) 25% 100ml IV 100 ML IV PRN (14:39)
[2024-01-14] MEDS: HYDROcodone/acetaminophen 5mg/325mg tablet PO PRN (14:59)
[2024-01-14] MEDS: temazepam 15mg capsule PO PRN (20:28)
[2024-01-14] MEDS: diphenhydrAMINE 50 mg/ml inj IV PRN (21:33)
[2024-01-15] VITALS (10 sets, daily range): BP systolic 97–132; BP diastolic 59–87; PULSE 88–104; RESP 13–18; TEMP 97.7–98.5; O2SAT 91–100
[2024-01-15] MEDS: HYDROcodone/acetaminophen 10/325mg tab PO PRN (02:25)
[2024-01-15] MEDS: ondansetron/PF 4mg/2ml inj IV PRN (04:11)
[2024-01-15] MEDS: morphine 2 MG/ML inj. syringe IV ONE (05:31)
[2024-01-15 06:37] LABS: BASOPHILS % (AUTO) 0.6 % (0-1); EOSINOPHILS # (AUTO) 0.1 X10'3 (0-0.9); HEMATOCRIT 30.4 % (35.0-45.0); HEMOGLOBIN 9.5 g/dl (12.0-16.0); LYMPHOCYTES # (AUTO) 0.4 X10'3 (1.1-4.8); LYMPHOCYTES % (AUTO) 6.4 % (21-51); MEAN CORPUSCULAR HGB CONC 31.2 g/dL (33.0-36.5); MEAN CORPUSCULAR VOLUME 93.1 FL (78-98); MEAN PLATELET VOLUME 7.9 FL (7.4-10.4); MONOCYTES # (AUTO) 0.5 X10'3 (0-0.9); MONOCYTES % (AUTO) 7.7 % (2-12); NEUTROPHILS # (AUTO) 5.6 X10'3 (1.8-7.7); NEUTROPHILS % (AUTO) 83.3 % (42-75); PLATELET COUNT 257 X10'3 (140-440); RED BLOOD COUNT 3.26 X10'6 (4.20-5.60); RED CELL DISTRIBUTION WIDTH 19.2 % (11.5-14.5); WHITE BLOOD COUNT 6.8 X10'3 (4.5-11.0)
[2024-01-15 07:06] LABS: ALANINE AMINOTRANSFERASE 6 U/L (12-78); ALBUMIN 2.4 G/DL (3.4-5.0); ALBUMIN/GLOBULIN RATIO 0.5 (1.1-1.5); ALKALINE PHOSPHATASE 99 IU/L (46-116); ANION GAP 14 (8-16); ASPARTATE AMINO TRANSFERASE 40 U/L (10-37); BLOOD UREA NITROGEN 27 MG/DL (7-18); BUN/CREATININE RATIO 3.8 (10.0-20.0); CALCIUM 8.6 MG/DL (8.5-10.1); CHLORIDE 97 MMOL/L (99-107); CREATININE 7.16 MG/DL (0.40-0.90); GLUCOSE 58 MG/DL (70-104); MAGNESIUM 2.3 MG/DL (1.5-2.4); POTASSIUM 4.8 MMOL/L (3.5-5.1); SODIUM 134 MMOL/L (135-145); TOTAL CARBON DIOXIDE 23.5 MMOL/L (24-32); TOTAL PROTEIN 7.7 G/DL (6.4-8.2); eCRCL 8 ML/MIN; eGFR 7 ML/MIN
[2024-01-15] MEDS: morphine 2 MG/ML inj. syringe IV PRN (08:21)
[2024-01-15 12:13] LABS: GLUCOSE,BODY FLUID 56 MG/DL; LDH,BODY FLUID 361 U/L; TOTAL PROTEIN,BODY FLUID 4.9 G/DL
[2024-01-15 13:10] LABS: BF WBC COUNT 413 /CU MM (0-1000); BFAPPEAR BLOODY; BFCOLOR RED; BFSOURCE ASCITES FLD; BFVOLUME 45 ML
[2024-01-15 13:11] LABS: BASOPHILS,BODY FLUID 0 %; BF RBC COUNT 185000 /CU MM; EOSINOPHILS,BODY FLUID 1 %; LYMPHOCYTES,BODY FLUID 27 %; MONOCYTES,BODY FLUID 31 %; NEUTROPHILS,BODY FLUID 41 %
[2024-01-15] MEDS: albumin (human) 25% 100 ML IV solution IV ONE (18:40)
[2024-01-16] VITALS (10 sets, daily range): BP systolic 86–129; BP diastolic 51–75; PULSE 91–104; RESP 16–26; TEMP 97.2–98; O2SAT 91–100
[2024-01-16 07:16] LABS: HBSAG SCREEN Negative (Negative)
[2024-01-16 07:33] LABS: BASOPHILS # (AUTO) 0.1 X10'3 (0-0.2); EOSINOPHILS # (AUTO) 0.3 X10'3 (0-0.9); EOSINOPHILS % (AUTO) 3.7 % (0-6); HEMATOCRIT 31.9 % (35.0-45.0); HEMOGLOBIN 9.8 g/dl (12.0-16.0); LYMPHOCYTES # (AUTO) 0.6 X10'3 (1.1-4.8); LYMPHOCYTES % (AUTO) 9.2 % (21-51); MEAN CORPUSCULAR HEMOGLOBIN 29.1 PG (27.0-31.0); MEAN CORPUSCULAR HGB CONC 30.9 g/dL (33.0-36.5); MEAN CORPUSCULAR VOLUME 94.2 FL (78-98); MEAN PLATELET VOLUME 8.7 FL (7.4-10.4); MONOCYTES # (AUTO) 0.5 X10'3 (0-0.9); MONOCYTES % (AUTO) 7.6 % (2-12); NEUTROPHILS # (AUTO) 5.5 X10'3 (1.8-7.7); NEUTROPHILS % (AUTO) 78.5 % (42-75); PLATELET COUNT 261 X10'3 (140-440); RED BLOOD COUNT 3.38 X10'6 (4.20-5.60); RED CELL DISTRIBUTION WIDTH 19.4 % (11.5-14.5)
[2024-01-16 07:36] LABS: ALBUMIN 2.7 G/DL (3.4-5.0); ALBUMIN/GLOBULIN RATIO 0.5 (1.1-1.5); ALKALINE PHOSPHATASE 104 IU/L (46-116); ANION GAP 15 (8-16); ASPARTATE AMINO TRANSFERASE 51 U/L (10-37); BILIRUBIN,TOTAL 1.1 MG/DL (0.1-1.0); BLOOD UREA NITROGEN 34 MG/DL (7-18); BUN/CREATININE RATIO 4.2 (10.0-20.0); CALCIUM 8.8 MG/DL (8.5-10.1); CHLORIDE 94 MMOL/L (99-107); CREATININE 8.14 MG/DL (0.40-0.90); MAGNESIUM 2.4 MG/DL (1.5-2.4); POTASSIUM 5.2 MMOL/L (3.5-5.1); SODIUM 131 MMOL/L (135-145); TOTAL CARBON DIOXIDE 22.4 MMOL/L (24-32); eCRCL 7 ML/MIN; eGFR 6 ML/MIN
[2024-01-16 07:38] LABS: ALANINE AMINOTRANSFERASE < 6 U/L (12-78)
[2024-01-16 07:43] LABS: GLUCOSE 49 MG/DL (70-104)
[2024-01-16 09:10] LABS: ANISOCYTOSIS 2+; BURR CELLS 2+; HYPOCHROMASIA 1+; PLATELET ESTIMATE NORMAL; SCHISTOCYTES FEW
[2024-01-16] MEDS ORDERED: albumin (human) 25% 100ml IV 100 ML IV PRN (10:00)
[2024-01-16] MEDS: magnesium hydroxide 30ml (MOM) UD suspension PO PRN (14:23)
[2024-01-16] MEDS: EPOETIN ALFA-EPBX 20,000 UNIT/ML 1 ML MDV IV ONE (19:14)
[2024-01-16] MEDS: heparin 1,000unit/ml 10ml vial 10 ML IV ONE (19:15)
[2024-01-16] MEDS: heparin 1,000 units/ml 10ml inj HE ONE ×2 (19:16)
[2024-01-16] MEDS: heparin 1,000 units/ml 10ml inj IV ONE (19:17)
[2024-01-16] MEDS: HYDROcodone/acetaminophen 10/325mg tab PO PRN (22:19)
[2024-01-17] MEDS: dextrose 50%-water 50ml dispensing syringe IV PRN ×2 (01:45→17:07)
[2024-01-17 02:00] VITALS: BP 128/73; PULSE 99; RESP 28; O2SAT 94
[2024-01-17] MEDS ORDERED: glucagon, human recombinant 1mg kit SUBCUT PRN (02:15)
[2024-01-17] MEDS ORDERED: DEXTROSE 15 GM of carb/4 tabs (each vial/BOTTLE has 4 tablets) PO PRN (02:15)
[2024-01-17] MEDS ORDERED: dextrose 50%-water 50ml dispensing syringe IV PRN (02:15)
[2024-01-17 06:25] LABS: BASOPHILS # (AUTO) 0.1 X10'3 (0-0.2); EOSINOPHILS # (AUTO) 0.2 X10'3 (0-0.9); EOSINOPHILS % (AUTO) 2.8 % (0-6); HEMATOCRIT 29.7 % (35.0-45.0); HEMOGLOBIN 9.6 g/dl (12.0-16.0); LYMPHOCYTES # (AUTO) 0.4 X10'3 (1.1-4.8); LYMPHOCYTES % (AUTO) 5.7 % (21-51); MEAN CORPUSCULAR HEMOGLOBIN 29.5 PG (27.0-31.0); MEAN CORPUSCULAR HGB CONC 32.2 g/dL (33.0-36.5); MEAN CORPUSCULAR VOLUME 91.8 FL (78-98); MEAN PLATELET VOLUME 8.3 FL (7.4-10.4); MONOCYTES # (AUTO) 0.4 X10'3 (0-0.9); NEUTROPHILS # (AUTO) 5.2 X10'3 (1.8-7.7); NEUTROPHILS % (AUTO) 83.5 % (42-75); PLATELET COUNT 257 X10'3 (140-440); RED BLOOD COUNT 3.24 X10'6 (4.20-5.60); RED CELL DISTRIBUTION WIDTH 19.5 % (11.5-14.5); WHITE BLOOD COUNT 6.2 X10'3 (4.5-11.0)
[2024-01-17 07:04] LABS: CHLORIDE 95 MMOL/L (99-107); CREATININE 6.21 MG/DL (0.40-0.90); GLUCOSE 68 MG/DL (70-104); POTASSIUM 4.8 MMOL/L (3.5-5.1); SODIUM 132 MMOL/L (135-145); eCRCL 9 ML/MIN; eGFR 8 ML/MIN
[2024-01-17 07:16] LABS: ALANINE AMINOTRANSFERASE 9 U/L (12-78); ALBUMIN 2.4 G/DL (3.4-5.0); ALBUMIN/GLOBULIN RATIO 0.5 (1.1-1.5); ALKALINE PHOSPHATASE 103 IU/L (46-116); ANION GAP 13 (8-16); ASPARTATE AMINO TRANSFERASE 48 U/L (10-37); BILIRUBIN,TOTAL 0.8 MG/DL (0.1-1.0); BLOOD UREA NITROGEN 24 MG/DL (7-18); BUN/CREATININE RATIO 3.9 (10.0-20.0); CALCIUM 7.4 MG/DL (8.5-10.1); MAGNESIUM 2.2 MG/DL (1.5-2.4); TOTAL PROTEIN 7.4 G/DL (6.4-8.2)
[2024-01-17] MEDS: DEXTROSE 15 GM of carb/4 tabs (each vial/BOTTLE has 4 tablets) PO PRN (08:16)
[2024-01-17 09:25] LABS: ANISOCYTOSIS 2+; PLATELET ESTIMATE NORMAL; TARGET CELLS FEW
[2024-01-17] MEDS ORDERED: PCA WASTE DOCUMENTATION 1 MG ML MC PRN (09:55)
[2024-01-17] MEDS ORDERED: naloxone 0.4 mg/ml inj IV PRN (09:55)
[2024-01-17 10:00] VITALS: BP 120/58; PULSE 98; RESP 18; TEMP 98.7; O2SAT 98
[2024-01-17] MEDS: HYDROmorph/NS 0.2 mg/ml PCA 100 ML IV SCH (11:00)
[2024-01-17 18:00] VITALS: BP 104/63; PULSE 84; RESP 17; TEMP 98.6; O2SAT 100
[2024-01-17 20:00] VITALS: RESP 18; O2SAT 93
[2024-01-17 22:00] VITALS: BP 121/70; PULSE 87; RESP 19; TEMP 96.8; O2SAT 100
[2024-01-18] VITALS (12 sets, daily range): BP systolic 87–105; BP diastolic 50–60; PULSE 83–94; RESP 16–20; TEMP 96.9–97.8; O2SAT 95–99
[2024-01-18] MEDS: mag hydrox/Alum hydrox/simeth 30ml oral suspension PO PRN (01:32)
[2024-01-18 06:31] LABS: ALANINE AMINOTRANSFERASE 6 U/L (12-78); ALBUMIN 2.3 G/DL (3.4-5.0); ALBUMIN/GLOBULIN RATIO 0.4 (1.1-1.5); ALKALINE PHOSPHATASE 113 IU/L (46-116); ANION GAP 10 (8-16); ASPARTATE AMINO TRANSFERASE 43 U/L (10-37); BILIRUBIN,TOTAL 0.8 MG/DL (0.1-1.0); BLOOD UREA NITROGEN 31 MG/DL (7-18); BUN/CREATININE RATIO 4.3 (10.0-20.0); CALCIUM 8.8 MG/DL (8.5-10.1); CHLORIDE 95 MMOL/L (99-107); CREATININE 7.14 MG/DL (0.40-0.90); GLUCOSE 90 MG/DL (70-104); POTASSIUM 5.7 MMOL/L (3.5-5.1); SODIUM 130 MMOL/L (135-145); TOTAL CARBON DIOXIDE 24.6 MMOL/L (24-32); TOTAL PROTEIN 7.5 G/DL (6.4-8.2); eCRCL 8 ML/MIN; eGFR 7 ML/MIN
[2024-01-18 06:44] LABS: BASOPHILS % (AUTO) 0.4 % (0-1); EOSINOPHILS # (AUTO) 0.1 X10'3 (0-0.9); LYMPHOCYTES # (AUTO) 0.6 X10'3 (1.1-4.8); LYMPHOCYTES % (AUTO) 7.7 % (21-51); MEAN CORPUSCULAR HEMOGLOBIN 28.7 PG (27.0-31.0); MEAN PLATELET VOLUME 8.4 FL (7.4-10.4); MONOCYTES # (AUTO) 0.6 X10'3 (0-0.9); MONOCYTES % (AUTO) 7.8 % (2-12); NEUTROPHILS % (AUTO) 82.1 % (42-75); PLATELET COUNT 293 X10'3 (140-440); WHITE BLOOD COUNT 7.3 X10'3 (4.5-11.0)
[2024-01-18 07:50] LABS: HEMATOCRIT 29.6 % (35.0-45.0); HEMOGLOBIN 9.3 g/dl (12.0-16.0); MEAN CORPUSCULAR HGB CONC 31.4 g/dL (33.0-36.5); MEAN CORPUSCULAR VOLUME 91.5 FL (78-98); RED BLOOD COUNT 3.23 X10'6 (4.20-5.60); RED CELL DISTRIBUTION WIDTH 18.6 % (11.5-14.5)
[2024-01-18 08:37] LABS: BURR CELLS FEW; PLATELET ESTIMATE NORMAL
[2024-01-18 08:38] LABS: ANISOCYTOSIS 2+; POLYCHROMASIA 1+
[2024-01-18] MEDS: albumin (human) 25% 100ml IV 100 ML IV PRN (10:04)
[2024-01-18] MEDS: heparin 1,000unit/ml 10ml vial 10 ML IV ONE (10:13)
[2024-01-18] MEDS: heparin 1,000 units/ml 10ml inj HE ONE ×2 (10:15→10:16)
[2024-01-18] MEDS: EPOETIN ALFA-EPBX 20,000 UNIT/ML 1 ML MDV IV ONE (10:17)
[2024-01-18] MEDS: heparin 1,000 units/ml 10ml inj IV ONE (10:17)
[2024-01-18] MEDS: NUT.TX.IMP.RENAL FXN,LAC-REDUC (Nepro) 237 ML VANILLA PO SCH (17:57)
[2024-01-19] MEDS ORDERED: CEFD300C3 PO (10:41)
== END 2024-01-19 14:40 | disposition home or self-care (01) | DRG 871 ==
LOC: ER 10:57 → ED HOLD 20:18 → ORTHO 4S 01-14 08:33
PROVIDERS: ADMIT Surgery Surgical Critical Care; ATTEND Registered Nurse Psychiatric/Mental Health
PROC: 5A1D70Z Performance of Urinary Filtration, Intermittent, Less than 6 Hours Per Day (ICD-10-PCS; 2024-01-14)
PROC: 0W9G3ZZ Drainage of Peritoneal Cavity, Percutaneous Approach (ICD-10-PCS; principal; 2024-01-15)
PROC: 5A1D70Z Performance of Urinary Filtration, Intermittent, Less than 6 Hours Per Day (ICD-10-PCS; 2024-01-16)
PROC: 5A1D70Z Performance of Urinary Filtration, Intermittent, Less than 6 Hours Per Day (ICD-10-PCS; 2024-01-18)
DX: A41.9 Sepsis, unspecified organism (principal); K65.2 Spontaneous bacterial peritonitis; N18.6 End stage renal disease; R18.8 Other ascites; E87.1 Hypo-osmolality and hyponatremia; I50.22 Chronic systolic (congestive) heart failure; J96.11 Chronic respiratory failure with hypoxia; C67.9 Malignant neoplasm of bladder, unspecified; D63.8 Anemia in other chronic diseases classified elsewhere; E87.5 Hyperkalemia; G89.29 Other chronic pain; N26.1 Atrophy of kidney (terminal); M25.551 Pain in right hip; R91.8 Other nonspecific abnormal finding of lung field; K74.60 Unspecified cirrhosis of liver; Z99.2 Dependence on renal dialysis; Z88.8 Allergy status to other drugs, medicaments and biological substances; Z90.49 Acquired absence of other specified parts of digestive tract
CPT/HCPCS: 36415; 49083; 71045; 73630; 74176; 80053; 80061; 82607; 82728; 82945; 82948; 83036; 83540; 83550; 83605; 83615; 83735; 83880; 84145; 84157; 84443; 85008; 85025; 85610; 87040; 87070; 87340; 89051; 93306; 96365; 96375; 97161; 97530; 99285; A4615; A6213; A6449; E1594; G0257; G0378; J0696; J1171; J1200; J1644; J2270; J2405; J3490; J7030; J7040; P9047; Q4081